=== PATIENT | female | born 1970 | race Caucasian/White ===

== ENCOUNTER 2022-05-19 10:21 | Outpatient (CLI) | payer SELFPAY ==
--- OUTSIDE RECORDS SUMMARY | 2022-05-19 10:27 | XMS_ITS | Encounter Summary ---
:1970 Author Organization [facility] Address [address] [place] [address] Care Team Providers Name Role Phone Deyvi Vick PA-C Primary Care Provider Reason for Visit Auth/Cert Specialty Diagnoses / Procedures Referred By Contact Refer red To Contact Surgery Diagnoses Right renal mass Right renal mass [N28.89] Periop Services Procedures Z[facility] LAPAROSCOPY, SURGICAL; NEPHRECTOMY, W/ PARTIAL URETERECTOMY ZZC NEPHRECTOMY ZZC LAP,DONOR KIDNEY REMOV,LIVING ZZC NEPHRECTOMY, W/PART. URETECTOMY Z LAP,PARTIAL NEPHRECTOMY HAND ASSISTED LAPAROSCOPIC RIGHT NEPHRECTOMY [address], [address] [place] [address] Phone: Referral ID Status Reason Start Date Expiration Date Visits Requ ested Visits Authorized [id number] 1 1 Encounter Details Date Type Department Care Team Description 01/16/2021 Anesthesia Event [facility] Jeremiah Quinones MD [facility] ANESTHESIOLOGIS [address], [address] [place] [address] [place] [address] [phone] Anesthesia Record Procedure Summary Procedure Name Responsible Anesthesia Start Anesthesia Stop Anesthesiologist Time Time HAND ASSISTED Noe Quinones MD 01/16/21 0733 01/16/21 0 924 LAPAROSCOPIC RIGHT NEPHRECTOMY (Right: Abdomen) Events Date Time Event Comment 01/16/2021 0641 0714 VINYL FLOORING INSTALLER Ready for Procedure 0733 An Start 0733 An Start Data 0733 Quick Note Patient has smal l abrasion on right eyebrow 0738 An Induction 0738 MD Present 0742 An Intubation 0742 MD Present 08 AN INCISION 0820 MD Present 0903 MD Present 09 MD Present 09 AN Extubation All extubation c riteria met prior to removal. 0912 an stop data 0924 An Stop Electronically s igned by SHERLYN Weller RNA on January 16, 2021 9:24 AM Name Total dexamethasone 4mg/mL 4 mg ePHEDrine 5 mg/mL 10 mg fentaNYL (SUBLIMAZE) injection 200 mcg glycopyrrolate 0.2mg/mL 0.6 mg lidocaine 2% 100 mg midazolam 1mg/mL 2 mg neostigmine 1mg/mL 4 mg ondansetron 2mg/mL 4 mg phenylephrine (LESLEY-SYNEPHRINE) injection 150 mcg propofol (DIPRIVAN) injection 10 mg/mL vial 150 mg propofol infusion (mcg/kg/min) 74.78 mg rocuronium 10mg/mL 60 mg ceFAZolin (ANCEF) intermittent infusion 2 g in 100 mL dextrose PRE-MIX 2 g HYDROmorphone 1 mg/ml 0.5 mg dexmedetomidine (PRECEDEX) 4 mcg/mL bolus 16 mcg lactated ringers infusion 1,300 mL LR PIV #2 100 mL Agents Name NO HELIOX O2 N2O Air Exp Sevoflurane Exp Isoflurane Exp Desflurane Exp N2O Ins Sevoflurane Ins Isoflurane Ins Desflurane O2 Auxiliary Blood No blood administrations on file. Lines, Drains, and Airways Type Details Placement Removal Incision/Surgical Site 01/16/21; 0909; Right; 01/16/21 0909 by Flank (LARGER Serene Whittington INCISION) SHELBY Shah Incision/Surgical Site 01/16/21; 0909; Right; 01/16/21 0909 by Abdomen; PORT SITES X PkErickSerene 3 SHELBY Shah Peripheral IV 01/16/21; 0639; 18 G; 01/16/21 0639 by 01/17/21 1815 by Left, Dorsal; Hand Saba Gutiérrez RN Akonure, Joan, RN Peripheral IV 01/16/21; 0646; 18 G; 01/16/21 0646 by 01/17/21 1815 by Right; Hand; Saba Gutiérrez, Juan Burrell, RN Chlorhexidine; Injectable Urethral Catheter 01/16/21; 0740; No; 01/16/21 0740 by 01/16/21 0900 by /GI/INTERMEDIATE SCHOOL TEACHER Pelvic Pk, Serene Pk, Serene Procedure; 16 fr SHELBY Shah RN ETT Placement Date: 01/16/21 0742 by 01/16/21 0910 b y 01/16/21; Placement Kailee Cunningham, Kailee Blackwell nd Time: 741 (created NUCLEAR AUXILIARY OPERATOR VINYL FLOORING INSTALLER D, NUCLEAR AUXILIARY OPERATOR VINYL FLOORING INSTALLER via procedure documentation); Mask Ventilation: 1; Ease of Intubation: Easy; Technique: Direct laryngoscopy; ETT Type: Single; Tube Size: 7 mm; DL Blade Size: Lares 2; Grade View: 2; Adjucts: Stylet; Placement Person: VINYL FLOORING INSTALLER; Attempts: 1; Depth: 21 cm documented in this encounter Social History Tobacco Use Types Packs/Day Years Used Date Smoking Tobacco: Former Other Smokeless Tobacco: Current Comments: Vaping Alcohol Use Standard Drinks/Week Comments Yes 0 (1 standard drink = 0.6 oz pure alcoho l) Occasional drink Sex Assigned at Date Recorded Not on file COVID-19 Exposure Response Date Recorded In the last month, have you been in contact with No / Unsure 01/16/2021 5:28 AM CDT someone who was confirmed or suspected to have Coronavirus / COVID-19? documented as of this encounter OR Notes Anesthesia Postprocedure Evaluation - Noe Quniones MD - 01/16/2021 2:37 PM CDT Patient: Pily Bojorquez Procedure(s): HAND ASSISTED LAPAROSCOPIC RIGHT NEPHRECTOMY Diagnosis:Right renal mass [N28.89] Diagnosis Additional Information: No value filed. Anesthesia Type: General Note: Disposition: Admission Postop Pain Control: Uneventful Sign Out: Well controlled pain PONV: No Neuro/Psych: Uneventful Sign Out: Acceptable/Baseline neuro status Airway/Respiratory: Uneventful Sign Out: Acceptable/Baseline resp. status CV/Hemodynamics: Uneventful Sign Out: Acceptable CV status; No obvious hypovolemia; No obvious fluid overload Other NRE: NONE DID A NON-ROUTINE EVENT OCCUR? No Event details/Postop Comments: On arrival to PACU patient anxious with shallow breathing, sats 100%, normal HR and blood pressure. Breath sounds equal. CXR obtained to rule out pneumothorax. Patient given 1 mg versed for anxiety. Last vitals: Vitals: 01/16/21 1058 01/16/21 1100 01/16/21 1300 BP: 128/69 Pulse: 54 Resp: 16 16 Temp: 36.3 ??C (97.4 ??F) SpO2: 91% 99% Last vitals prior to Anesthesia Care Transfer: VINYL FLOORING INSTALLER VITALS 01/16/2021 0842 - 01/16/2021 0942 01/16/2021 Resp Rate (observed): 16 EKG: Sinus rhythm Electronically Signed By: Noe Quinones MD January 16, 2021 2:38 PM Anesthesia Procedure Notes - Kailee Cunningham APRN CRNA - 01/16/2021 8:08 AM CDTAssociated Order(s): Airway Airway Patient location during procedure: OR Procedure Start/Stop Times: 01/16/2021 7:42 AM Staff - Anesthesiologist: Noe Quinones MD VINYL FLOORING INSTALLER: Kailee Cunningham APRN VINYL FLOORING INSTALLER Performed By: RAJI Consent for Airway Urgency: elective Indications and Patient Condition Indications for airway management: ayla-procedural Mask difficulty assessment: 1 - vent by mask Final Airway Details Final airway type: endotracheal airway Successful airway: ETT - single Endotracheal Airway Details ETT size (mm): 7.0 Cuffed: yes Successful intubation technique: direct laryngoscopy DL Blade Type: Lares 2 Grade View of Cords: 2 Adjucts: stylet Position: Right Measured from: gums/teeth Secured at (cm): 21 Bite block used: None Post intubation assessment Placement verified by: capnometry, equal breath sounds and chest rise Number of attempts at approach: 1 Number of other approaches attempted: 0 Secured with: silk tape Ease of procedure: easy Dentition: Intact and Unchanged Medication(s) Administered Medication Administration Time: 01/16/2021 7:42 AM Anesthesia Preprocedure Evaluation - Noe Quinones MD - 01/15/2021 8:34 PM CDT Anesthesia Pre-Procedure Evaluation Patient: Pily Bojorquez : 1970 Preoperative Diagnosis: Right renal mass [N28.89] Procedure : Procedure(s): HAND ASSISTED LAPAROSCOPIC RIGHT NEPHRECTOMY Past Medical History: Diagnosis Date ??? Colitis ??? Hypertension ??? Major depressive disorder Past Surgical History: Procedure Laterality Date ??? C/SECTION, CLASSICAL ??? COLONOSCOPY ??? Failed Bunionectomy ??? TUBAL LIGATION Allergies Allergen Reactions ??? Sulfa Drugs Hives Social History Tobacco Use ??? Smoking status: Current Every Day Smoker Types: Other ??? Smokeless tobacco: Never Used ??? Tobacco comment: Vaping Substance Use Topics ??? Alcohol use: Yes Comment: Occasional drink Wt Readings from Last 1 Encounters: No data found for Wt EKG - SR, nl axis HGB 14. K 4.7 Anesthesia Evaluation Pt has had prior anesthetic. No history of anesthetic complications ROS/MED HX ENT/Pulmonary: (+) tobacco use (Vapes), Past use, (-) sleep apnea and recent URI Neurologic: (+) no peripheral neuropathy (-) no seizures and migraines Cardiovascular: (+) hypertension----- (-) CHF and orthopnea/PND METS/Exercise Tolerance: Hematologic: - neg hematologic ROS Musculoskeletal: - neg musculoskeletal ROS GI/Hepatic: Comment: colitis (-) GERD Renal/Genitourinary: Comment: Right renal mass - incidental finding on MRI done for left sided back pain - neg Renal ROS Endo: - neg endo ROS (-) Type II DM and thyroid disease Psychiatric/Substance Use: (+) psychiatric history depression Infectious Disease: - neg infectious disease ROS Malignancy: - neg malignancy ROS Other: Physical Exam Airway airway exam normal Mallampati: I TM distance: > 3 FB Neck ROM: full Mouth opening: > 3 cm Respiratory Devices and Support Dental no notable dental history Cardiovascular Rhythm and rate: regular and normal Pulmonary pulmonary exam normal breath sounds clear to auscultation OUTSIDE LABS: CBC: No results found for: WBC, HGB, HCT, PLT BMP: No results found for: NA, POTASSIUM, CHLORIDE, CO2, BUN, CR, GLC COAGS: No results found for: PTT, INR, FIBR POC: No results found for: BGM, HCG, HCGS HEPATIC: No results found for: ALBUMIN, PROTTOTAL, ALT, AST, GGT, ALKPHOS, BILITOTAL, BILIDIRECT, RICH OTHER: No results found for: PH, LACT, A1C, SAIDA, PHOS, MAG, LIPASE, AMYLASE, TSH, T4, T3, CRP, SED Anesthesia Plan ASA Status: 2 NPO Status: NPO Appropriate Anesthesia Type: General. - Airway: ETT Induction: Propofol. Maintenance: Balanced. Techniques and Equipment: - Lines/Monitors: 2nd IV Consents Anesthesia Plan(s) and associated risks, benefits, and realistic alternatives discussed. Questions answered and patient/passenger service representative(s) expressed understanding. - Discussed with: Patient Postoperative Care Pain management: IV analgesics. PONV prophylaxis: Ondansetron (or other 5HT-3), Dexamethasone or Solumedrol, Background Propofol Infusion Comments: Noe Quinones MD documented in this encounter Miscellaneous Notes Anesthesia Care Transfer Note - Kailee Cunningham APRN VINYL FLOORING INSTALLER - 01/16/2021 9:25 AM CDT Patient: Pily Bojorquez Procedure(s): HAND ASSISTED LAPAROSCOPIC RIGHT NEPHRECTOMY Diagnosis: Right renal mass [N28.89] Diagnosis Additional Information: No value filed. Anesthesia Type: General Note: Oropharynx: oropharynx clear of all foreign objects Level of Consciousness: awake Oxygen Supplementation: face mask Level of Supplemental Oxygen (L/min / FiO2): 6 Independent Airway: airway patency satisfactory and stable Dentition: dentition unchanged Vital Signs Stable: post-procedure vital signs reviewed and stable Report to RN Given: handoff report given Patient transferred to: PACU Comments: Neuromuscular blockade reversed after TOF 1/4, spontaneous respirations, adequate tidal volumes, followed commands to voice, oropharynx suctioned with soft flexible catheter, extubated atraumatically, extubated with suction, airway patent after extubation. Oxygen via facemask at 6 liters per minute to PACU. Oxygen tubing connected to wall O2 in PACU, SpO2, NiBP, and EKG monitors and alarms on and functioning, report on patient's clinical status given to BINDER ROLLER, RN questions answered. Handoff Report: Identifed the Patient, Identified the Reponsible Provider, Reviewed the pertinent medical history, Discussed the surgical course, Reviewed Intra-OP anesthesia mangement and issues during anesthesia, Set expectations for post-procedure period and Allowed opportunity for questions and acknowledgement of understanding Vitals: (Last set prior to Anesthesia Care Transfer) VINYL FLOORING INSTALLER VITALS 01/16/2021 0842 - 01/16/2021 0925 01/16/2021 Resp Rate (set): 10 Electronically Signed By: Kailee Cunningham APRN CRNA January 16, 2021 9:25 AM documented in this encounter Plan of Treatment Not on filedocumented as of this encounter Procedures Procedure Name Priority Date/Time Associated Comments Diagnosis ANE AIRWAY ETT Routine 01/16/2021 8:08 AM Results for this PERFORMABLE CDT procedure are i n the results section. documented in this encounter Results ANE AIRWAY ETT PERFORMABLE (01/16/2021 8:08 AM CDT) Narrative Kailee Cunningham APRN CRNA - 2020 8:08 AM CDT Kailee Cunningham APRN CRNA ? 01/16/2021 ??8:09 AM Airway ? Patient location during procedure : OR ? Procedure Start/Stop Times: 2020 7:42 AM Staff - ? Anesthesiologist: ??Jeremiah Quinones MD ? VINYL FLOORING INSTALLER: Kailee Cunningham APRN CRNA ? Performed By: VINYL FLOORING INSTALLER Consent for Airway ? Urgency: elective Indications and Patient Condition ? Indications for airway management : ayla-procedural ? Mask difficulty assessment: 1 - v ent by mask Final Airway Details ? Final airway type: endotracheal a irway ? Successful airway: ETT - single Endotracheal Airway Details ? ETT size (mm): 7.0 ? Cuffed: yes ? Successful intubation technique: direct laryngoscopy ? DL Blade Type: Lares 2 ? Grade View of Cords: 2 ? Adjucts: stylet ? Position: Right ? Measured from: gums/teeth ? Secured at (cm): 21 ? Bite block used: None Post intubation assessment ? Placement verified by: capnometry , equal breath sounds and chest rise ? Number of attempts at approach: 1 ? Number of other approaches attemp ingrid: 0 ? Secured with: silk tape ? Ease of procedure: easy ? Dentition: Intact and Unchanged Medication(s) Administered Medication Administration Time: 7:42 AM Noe Quinones MD [place] ANESTHESIA documented in this encounter Visit Diagnoses Not on filedocumented in this encounter Administered Medications Inactive Administered Medications - up to 3 most recent administrations Medication Order MAR Action Action Date Dose Rate Site ceFAZolin (ANCEF) intermittent Given 01/16/2021 7:45 AM CDT 2 g infusion 2 g in 100 mL dextrose PRE-MIX Routine, 2 g, Intravenous, PRE-OP/PRE-PROCEDURE, Starting on Tue01/16/21 at 0602, For 1 dose, Give first dose within 1 hour PRIOR to incision. If patient weight is greater than or equal to 120 kg increase dose to 3 g., Indications: Perioperative Pharmacoprophylaxis dexamethasone (DECADRON) injection Given 01/16/2021 7:48 AM CDT 4 mg PRN, Administer over 1 Minutes, Starting on Tue01/16/21 at 0748, Anesthesia Intra-op dexmedetomidine (PRECEDEX) 4 mcg/mL bolu s Bolus 01/16/2021 9:18 AM CDT 8 mcg CONTINUOUS PRN, Starting on Tue01/16/21 at 0911, Anesthesia Intra-op New Bag 01/16/2021 9:11 AM CDT 8 mcg ePHEDrine injection Given 01/16/2021 8:12 AM CDT 5 mg PRN, Starting on Tue01/16/21 at 0757, Anesthesia Intra-op Given 01/16/2021 7:57 AM CDT 5 mg fentaNYL (PF) (SUBLIMAZE) injection Given 01/16/2021 9:17 AM CDT 50 mcg PRN, Administer over 3-5 Minutes, Starting on Tue01/16/21 at 0738, Anesthesia Intra-op Given 01/16/2021 9:11 AM CDT 50 mcg Given 01/16/2021 7:38 AM CDT 100 mcg glycopyrrolate (ROBINUL) injection Given 01/16/2021 8:37 AM CDT 0.6 mg PRN, Administer over 1-2 Minutes, Starting on Tue01/16/21 at 0837, Anesthesia Intra-op HYDROmorphone (DILAUDID) injection Given 01/16/2021 8:19 AM CDT 0.5 mg PRN, Starting on Tue01/16/21 at 0819, Anesthesia Intra-op lactated ringers infusion New Bag 01/16/2021 8:21 AM CDT at 25 mL/hr, Intravenous, CONTINUOUS, IF patient NOT on dialysis., Starting on Tue01/16/21 at 0630, Until Tue01/17/21 at 2006 New Bag 01/16/2021 6:44 AM CDT 25 mL/hr lactated ringers infusion New Bag 01/16/2021 7:50 AM CDT CONTINUOUS PRN, Anesthesia Intra-op, Starting on Tue01/16/21 at 0750, Until Tue01/16/21 at 0924 lidocaine 2% injection (MDV) Given 01/16/2021 7:38 AM CDT 100 mg PRN, Starting on Tue01/16/21 at 0738, Anesthesia Intra-op midazolam (VERSED) injection Given 01/16/2021 7:38 AM CDT 2 mg Administer over 2 Minutes, PRN, Starting on Tue01/16/21 at 0738, Anesthesia Intra-op neostigmine (PROSTIGMINE) injection Given 01/16/2021 8:37 AM CDT 4 mg Intravenous, PRN, Starting on Tue01/16/21 at 0837, Anesthesia Intra-op ondansetron (ZOFRAN) injection Given 01/16/2021 8:35 AM CDT 4 mg PRN, Administer over 2-5 Minutes, Starting on Tue01/16/21 at 0835, Anesthesia Intra-op phenylephrine (LESLEY-SYNEPHRINE) injection Bolus 01/16/2021 8:12 AM CDT 50 mcg CONTINUOUS PRN, Starting on Tue01/16/21 at 0756, Anesthesia Intra-op New Bag 01/16/2021 7:56 AM CDT 100 mcg propofol (DIPRIVAN) infusion New Bag 01/16/2021 7:57 AM 30 mcg/kg/min 11.8 mL/hr Intravenous, CONTINUOUS PRN, CDT Starting on Tue01/16/21 at 0757, Anesthesia Intra-op propofol (DIPRIVAN) injection 10 mg/mL v ial Given 01/16/2021 7:38 AM CDT 150 mg PRN, Starting on Tue01/16/21 at 0738, Anesthesia Intra-op rocuronium injection Given 01/16/2021 8:05 AM CDT 10 mg PRN, Starting on Tue01/16/21 at 0738, Anesthesia Intra-op Given 01/16/2021 7:59 AM CDT 10 mg Given 01/16/2021 7:38 AM CDT 40 mg documented in this encounter Care Teams Peoplesoft Programmer Relationship Specialty Start Date End Date Deyvi Vick PA-C PCP - General 01/09/[address] [facility] [place] [address] documented as of this encounter
--- OUTSIDE RECORDS SUMMARY | 2022-05-19 10:27 | XMS_ITS | Clinical Summary ---
:1970 Author Organization [facility] Address [address] [place] [address] Care Team Providers Name Role Phone Deyvi Vick PA-C Primary Care Provider Allergies Active Allergy Reactions Severity Noted Date Comments Sulfa Drugs Hives Medium 01/15/2021 Medications Medication Sig Dispensed Refills Start Date End Date Status amLODIPine (NORVASC) Take 5 mg by mouth 0 Active 5 MG tablet every morning naproxen sodium 220 Take 220 mg by 0 Active MG capsule mouth as needed aluminum chloride Apply topically 0 Active (DRYSOL) 20 % nightly as needed external solution lisinopril (ZESTRIL) Take 20 mg by mouth 0 Active 20 MG tablet every morning cetirizine (ZYRTEC) Take 10 mg by mouth 0 Active 10 MG tablet every morning ibuprofen Take 200 mg by 0 Activ e (ADVIL/MOTRIN) 200 MG mouth every 4 hours tablet as needed for mild pain HYDROmorphone Take 1 tablet (2 15 tablet 0 01/17/2021 Active (DILAUDID) 2 MG mg) by mouth every tabletIndications: 6 hours as needed Renal mass for moderate to severe pain senna-docusate Take 1-2 tablets by 60 tablet 0 01/17/2021 Active (SENOKOT-S/PERICOLACE mouth 2 times daily ) 8.6-50 MG as needed for tabletIndications: constipation Renal mass Active Problems Problem Noted Date Renal mass 01/16/2021 Social History Tobacco Use Types Packs/Day Years Used Date Smoking Tobacco: Former Other Smokeless Tobacco: Current Comments: Vaping Alcohol Use Standard Drinks/Week Comments Yes 0 (1 standard drink = 0.6 oz pure alcoho l) Occasional drink Sex Assigned at Date Recorded Not on file Last Filed Vital Signs Vital Sign Reading Time Taken Comments Blood Pressure 137/72 01/17/2021 5:19 PM CDT Pulse 64 01/17/2021 5:19 PM CDT Temperature 36.7 ??C (98.1 ??F) 01/17/2021 5:19 PM CDT Respiratory Rate 17 01/17/2021 5:19 PM CDT Oxygen Saturation 99% 01/17/2021 5:19 PM CDT Inhaled Oxygen Concentration - - Weight 67.7 kg (149 lb 4.8 oz) 01/17/2021 12:24 AM CDT Height 160 cm (5' 3) 01/16/2021 6:38 AM CDT Body Mass Index 26.45 01/16/2021 6:38 AM CDT Plan of Treatment Health Maintenance Due Date Last Done Comments ADVANCE CARE PLANNING 1970 ANNUAL REVIEW OF HM ORDERS 1970 CT COLONOGRAPHY 1971 FIT-DNA (Cologuard) 1970 FIT 1970 FLEX SIG 1970 MAMMO SCREENING 1970 YEARLY PREVENTIVE VISIT 1970 COVID-19 Vaccine (#1) 06/02/1972 COLONOSCOPY 11/30/1981 COLORECTAL CANCER SCREENING 11/30/1981 HIV SCREENING 11/30/1986 HEPATITIS C SCREENING 11/30/1989 PAP 11/30/1992 HEPATITIS B IMMUNIZATION (3 11/13/2008 10/30/2008, 10/17/19 09 of 4 - Hep B Twinrix 4-dose series) LIPID 11/30/2016 PHQ-2 (once per calendar 07/25/2021 year) ZOSTER IMMUNIZATION (1 of 11/30/2021 2) INFLUENZA VACCINE (#1) 2022 05/25/2017, 05/25/2017, 04/16/2016, Additional history exists DTAP/TDAP/TD IMMUNIZATION 01/13/2031 01/13/2021, 10/16/2008 , (3 - Td or Tdap) 10/16/2008 IPV IMMUNIZATION Aged Out No longer eligi ble based on patient 's age to complete this topic MENINGITIS IMMUNIZATION Aged Out No longe r eligible based on patient 's age to complete this topic Pneumococcal Vaccine: Aged Out No longer eligible Pediatrics (0 to 5 Years) based on patient's age and At-Risk Patients (6 to to co mplete this topic 64 Years) Insurance Payer Benefit Plan / Subscriber ID Effective Phone Address T ype Group Dates PREFERREDONE PREFERREDONE HMO [id number] 2020-[employer] [phone] [address] [address] [address] [place] [address] Advance Directives For more information, please contact: [phone] Latest Code Status on File Code Status Date Activated Date Inactivated Comments Full Code 01/16/2021 9:11 AM 01/17/2021 8:06 PM All basic an d advanced life-sustaining interventions are performed as remington ropriate Question Answer Comments Code status determined by: Unable to determine; FULL CODE un til documents or legal decision maker available Care Teams Bumper And Painter Relationship Specialty Start Date End Date Deyvi Vick PA-C PCP - General 01/09/[address] [place] [address]
--- OUTSIDE RECORDS SUMMARY | 2022-05-19 10:27 | XMS_ITS ---
:1970 Author Care Team Providers Name Role Phone [facility] Primary Care Provider [phone] Allergies Code Code System Name Reaction Severity Status Onset Sulfa (Sulfonamide Antibiotics) ? ? Active ? Medications Name Status Start Date Stop Date ? ? amlodipine 10 mg tablet Active ? Not avai lable TAKE ONE TABLET BY MOUTH ONE TIME DAILY amlodipine 5 mg tablet Completed ? TAKE ONE TABLET BY MOUTH AT BEDTIME ciprofloxacin 500 mg tablet Completed ? 06/25 TAKE ONE TABLET BY MOUTH TWICE DAILY cyclobenzaprine 10 mg tablet Active ? Not available TAKE 1 TABLET BY MOUTH 3 TIMES DAILY NEEDED Drysol 20 % topical solution Completed ? 03/2021 apply topically ONCE NIGHTLY FOR 2-3 NIGHTS, THEN 1-2 TIMES PER WEEK at NIGHT fluconazole 150 mg tablet Active ? Not av ailable take 1 tablet by mouth once hydromorphone 2 mg tablet Completed ? 2020 TAKE 1 TABLET BY MOUTH EVERY 6 HOURS NEEDED FOR MODERATE TO SEVERE PAIN ibuprofen Active ? Not available PRN lisinopril 20 mg tablet Active ? Not avai lable TAKE ONE TABLET BY MOUTH ONE TIME DAILY methylprednisolone 4 mg tablets in a dose pack Completed ? 12/31/2020 FOLLOW PACKAGE INSTRUCTIONS Stimulant Laxative Plus 8.6 mg-50 mg tablet Active ? Not available TAKE 1 TO 2 TABLETS BY MOUTH TWICE DAILY NEEDED FOR CONSTIPA TION tramadol 50 mg tablet Completed ? 12/31/2020 TAKE ONE OR TWO TABLETS BY MOUTH EVERY SIX HOURS NEEDED FOR severe PAIN Zyrtec Active ? Not available Problems Name Status Onset Date Source ? 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 Procedures Date Name Performed by ? 01/16/2021 Nephrectomy, Hand Assisted Information n ot available Laparoscopic (Surg) ? Tubal Ligation Information not avai lable ? Colonoscopy Information not avai lable ? Caesarean Section Information not avai lable 06/02/2021 CT, Chest + Abdomen + Pelvis, W/ [facility] Radiology Department Contrast [address] [place] [address] (Work Place) 12/15/2021 CT, Chest + Abdomen + Pelvis, W/ [facility] Radiology Department Contrast [address] [place] [address] (Work Place) 12/15/2021 CT, Abdomen + Pelvis, W/o Contrast [facility] Radiology Department [address] [place] [address] (Work Place) 04/28/2022 CT, Chest + Abdomen + Pelvis, W/ [facility] Radiology Department Contrast [address] [place] [address] (Work Place) Results Lab Results None recorded. Past Encounters 07/13/2021 Malignant Tumor of Kidney José Pretty MD: [id number] [place] [address], Ph. 02/19/2021 Malignant Tumor of Kidney José Pretty MD: [id number] [place] [address], Ph. 12/31/2020 Renal Mass José Pretty MD: [id number], [address], [place] [address], Ph. Social History Tobacco Smoking Status Former Smoker Vaccine List None recorded. Plan of Care Reminders Provider Appointments None recorded. ? ? Lab None recorded. ? ? Referral None recorded. ? ? Procedures None recorded. ? ? Surgeries None recorded. ? ? Imaging None recorded. ? ? Vitals 07/13/2021 03:20PM ESTABLISHED 10 Height Weight BMI 5 ft 3 in 143 lbs 25.3 kg/m2 02/19/2021 10:20AM POST OP 10 Height Weight BMI 5 ft 3 in 143 lbs 25.3 kg/m2 12/31/2020 03:30PM NEW PATIENT 10 Height Weight BMI 5 ft 3 in 140 lbs 24.8 kg/m2
--- OUTSIDE RECORDS SUMMARY | 2022-05-19 10:27 | XMS_ITS | Encounter Summary ---
:1970 Author Organization [place] Address [address] [place] [address]. [place] [address] Care Team Providers Name Role Phone Deyvi Vick PA-C Primary Care Provider Encounter Details Date Type Department Care Team Description 01/21/2021 Telephone [facility] - José Wood MD Surgical Specialties [facility] Service Line [address] [place] [address] [place], [place] [address] [phone] Social History Tobacco Use Types Packs/Day Years [...] / COVID-19? 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
--- OUTSIDE RECORDS SUMMARY | 2022-05-19 10:27 | XMS_ITS | Clinical Summary ---
:1970 Author Organization [facility] [place] [address] Care Team Providers Name Role Phone Clinic, No Pcp Or Primary Care Provider Unavailable Allergies Active Allergy Reactions Severity Noted Date Comments Sulfa (Sulfonamide Other - Describe In Comment 018 Hives Antibiotics) Field Medications Medication Sig Dispensed Refills Start Date End Date Status lisinopril (PRINIVIL; Take 1 tablet by 0 03/08/2018 Active ZESTRIL) 10 mg tablet mouth once daily. cetirizine (ZYRTEC) 10 Take 1 tablet by 0 03/08/2018 Active mg tablet mouth once daily. amLODIPine (NORVASC) TAKE 1 TABLET (10 0 03/19/2021 Active 10 mg tablet MG) BY MOUTH DAILY Active Problems Not on file Social History Tobacco Use Types Packs/Day Years Used Date Former Smoker Smokeless Tobacco: Never Used Sex Assigned at Date Recorded Not on file Obstetrics History Last Filed Vital Signs Vital Sign Reading Time Taken Comments Blood Pressure 122/84 03/08/2018 1:25 PM CDT Pulse 92 03/08/2018 1:25 PM CDT Temperature - - Respiratory Rate - - Oxygen Saturation - - Inhaled Oxygen Concentration - - Weight - - Height - - Body Mass Index - - Plan of Treatment Health Maintenance Due Date Last Done Comments COVID-19 vaccine series (#1) 06/02/1972 Tdap 11/30/1982 Depression screening for age 12+ 1983 BMI (ht and wt on same day) for age 18+ 11/30/1989 Hepatitis C screening for age 18-79 11/30/1989 Tetanus booster 1991 Colonoscopy through age 75 11/30/2016 Lipids for age 45-75 11/30/2016 Mammogram for age 45-75 11/30/2016 Pap test for age 21-65 04/18/2017 04/18/2014, 04/18/2014 Zoster (shingles) series for age 50+ (1 of 11/30/2021 2) Influenza for age 50-64 03/25/2022 Results Not on filefrom Last 3 Months Insurance Payer Benefit Plan / Subscriber ID Effective Dates Phone Addre ss Type Group PREFERRED ONE PREFERRED ONE [id number] 2020-Present [address] [address] [place] [address] [employer] [place] [employer] [id number] 2018-Present [address] [address] [place] [address] 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
--- OUTSIDE RECORDS SUMMARY | 2022-05-19 10:27 | XMS_ITS | Encounter Summary ---
:1970 Author Organization [place] Address [address] [place] [address] Care Team Providers Name Role Phone Unavailable Primary Care Provider Unavailable Encounter Details Date Type Department Care Team Description 01/05/2021 Orders Only [facility] José Pretty Encounter for Ana Lilia Lewis OR MD Arik screening for other [address] [facility] viral diseases [place] [id number] [place] [phone] [address] [id number] [place] [id number] (Wo rk) Social History Tobacco Use Types Packs/Day Years Used Date Smoking Tobacco: Never Assessed Sex Assigned at Date Recorded Not on file documented as of this encounter Miscellaneous Notes Addendum Note - Ree Talavera LPN - 01/05/2021 3:32 PM CDT Addended by: REE TALAVERA on: 01/08/2021 01:33 PM Modules accepted: Orders documented in this encounter Plan of Treatment Not on filedocumented as of this encounter Visit Diagnoses Diagnosis Encounter for screening for other viral diseases documented in this encounter
--- OUTSIDE RECORDS SUMMARY | 2022-05-19 10:27 | XMS_ITS | Encounter Summary ---
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
--- OUTSIDE RECORDS SUMMARY | 2022-05-19 10:27 | XMS_ITS | Encounter Summary ---
:1970 Author Organization [facility] Address [address] [place] [address] Care Team Providers Name Role Phone Deyvi Vick PA-C Primary Care Provider Reason for Visit Auth/Cert Specialty Diagnoses / Procedures Referred By Contact Refer red To Contact Surgery Diagnoses Right renal mass Right renal mass [N28.89] Periop Services Procedures [facility] LAPAROSCOPY, SURGICAL; NEPHRECTOMY, W/ PARTIAL URETERECTOMY [facility] NEPHRECTOMY [facility] LAP,DONOR KIDNEY REMOV,LIVING [facility] NEPHRECTOMY, W/PART. URETECTOMY [facility] LAP,PARTIAL NEPHRECTOMY HAND ASSISTED LAPAROSCOPIC RIGHT NEPHRECTOMY [address] [place] [address] Phone: Referral ID Status Reason Start Date Expiration Date Visits Requ ested Visits Authorized [id number] 1 1 Encounter Details Date Type Department Care Team Description 01/16/2021 Surgery [facility] Apolonia Noel H AND ILIA Sung PeriOP LAPAROSCOPIC RIGHT Services [facility] [address] [place] [address] [id number] [place] [id number] (Wo rk) Surgery Details Date/Time Status Location OR Service Patient Case Class Case Tr auma Class Type Case? 01/16/21 7:30 Posted OR OR 41 Urology Surgery AM Admit Panel 1 Procedure LRB Anes Op Region Wound Class Commen ts HAND ASSISTED LAPAROSCOPIC Right General Abdomen II-Clean Contaminated RIGHT NEPHRECTOMY Surgeon Surgeon Role Service Panel Apolonia Noel MD Primary Urology 1 Marilin Temple PA-C Assisting 1 documented in this encounter Social History Tobacco [...] / COVID-19? documented as of this encounter Last Filed Vital Signs Vital Sign Reading Time Taken Comments Blood Pressure 114/73 01/16/2021 9:30 AM CDT Pulse 48 01/16/2021 9:30 AM CDT Temperature 36.2 ??C (97.1 ??F) 01/16/2021 9:20 AM CDT Respiratory Rate 15 01/16/2021 9:30 AM CDT Oxygen Saturation 100% 01/16/2021 9:30 AM CDT Inhaled Oxygen Concentration - - Weight 65.6 kg (144 lb 11.2 oz) 01/16/2021 6:38 AM CDT Height 160 cm (5' 3) 01/16/2021 6:38 AM CDT Body Mass Index 26.45 01/16/2021 6:38 AM CDT documented in this encounter Discharge Instructions Discharge InstructionsHailey Medellin RN - 01/17/2021 5:21 PM CDT AttachmentsThe following attachments cannot be sent through Care Everywhere. Nephrectomy, Discharge Instructions for (Frisian)documented in this encounter Medications at Time of Discharge Medication Sig Dispensed Refills Start Date End Date aluminum chloride Apply topically nightly 0 (DRYSOL) 20 % external as needed solution amLODIPine (NORVASC) 5 Take 5 mg by mouth 0 MG tablet every morning cetirizine (ZYRTEC) 10 Take 10 mg by mouth 0 MG tablet every morning HYDROmorphone (DILAUDID) Take 1 tablet (2 mg) by 15 tablet 0 01/17/2021 2 MG tabletIndications: mouth every 6 hours as Renal mass needed for moderate to severe pain ibuprofen (ADVIL/MOTRIN) Take 200 mg by mouth 0 200 MG tablet every 4 hours as needed for mild pain lisinopril (ZESTRIL) 20 Take 20 mg by mouth 0 MG tablet every morning naproxen sodium 220 MG Take 220 mg by mouth as 0 capsule needed senna-docusate Take 1-2 tablets by 60 tablet 0 01/17/2021 (SENOKOT-S/PERICOLACE) mouth 2 times daily as 8.6-50 MG needed for constipation tabletIndications: Renal mass documented as of this encounter Progress Notes Anatoliy Hernandez MD - 01/17/2021 1:20 PM CDT Images from the original note were not included. [facility] Progress Note Pain ok. Kiki reg diet. Voiding. Has not ambulated except to bathroom. AVSS. UOP NR Hgb 11.2 Cr 1.24 NAD Resp non-labored Abd s/appropriate tender, nondistended Incisions c/d/i NoLE edema 50F POD#1 s/p right hand assisted laparoscopic nephrectomy. Doing well. - Really needs to ambulate. Hasn't been out of room in >24 hrs! - More ambulation - ADAT, SLIV - PO Pain control - More ambulation - Discharge home later today vs tomorrow - F/u Dr Noel in 3-4 weeks Anatoliy Hernandez MD 1:24 PM 01/17/21 Hailey Medellin RN - 01/16/2021 8:33 PM CDT Notification Notified Person: Notified Person Name: Yue Todd Notification Date/Time: 01/16/21 8:33pm Notification Interaction: web Purpose of Notification: Patient complained of itching after oxycodone administration. she has a history of itching with oxy per patient. Please can she have Benadryl. Please, can oxy be swapped? Orders Received: Comments: Dina Maldonado RN - 01/16/2021 9:30 AM CDT Patient complaining of dificulty breathing. Dr. Quinones MDA at bedside. Chest x- ray obtained and painmeds and anxiety meds given. Chest xray good lung sounds clear and equal bilaterally. 1 of versed given per Dr. Quinones and abdominal binder placed. Recovered and stated easier to breath. 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 No Time spent in this activity: 20 minutes The information provided in this note is only as accurate as the sources available at the time of update(s) Prior to Admission medications Medication Sig Last Dose Taking? Auth Provider aluminum chloride (DRYSOL) 20 % external solution Apply topically nightly as needed at PRN Yes Reported, Patient amLODIPine (NORVASC) 5 MG tablet Take 5 mg by mouth every morning at AM Yes Reported, Patient cetirizine (ZYRTEC) 10 MG tablet Take 10 mg by mouth every morning at AM Yes Reported, Patient ibuprofen (ADVIL/MOTRIN) 200 MG tablet Take 200 mg by mouth every 4 hours as needed for mild pain atPRN Yes Reported, Patient lisinopril (ZESTRIL) 20 MG tablet Take 20 mg by mouth every morning at AM Yes Reported, Patient naproxen sodium 220 MG capsule Take 220 mg by mouth as needed at PRN Yes Reported, Patient Dinh Burks, [facility] Medication [facility] documented in this encounter H&P Notes Noe Quinones MD - 01/16/2021 6:41 AM CDT I have reviewed the surgical (or preoperative) H&P that is linked to this encounter, and examined the patient. 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 Wide and high renal vein but patent. ANESTHESIA General STAFF Wharf Helper: Serene Whittington RN Scrub Person: Gabriel Powers COMPLICATIONS None SPECIMEN Kidney to path PROSTHESIS/ GRAFTS/ DEVICES None EBL 10cc TECHNIQUE Patient was taken to the operating room and induced under general anesthesia. An oral gastric tube and sharma were placed to decompress the abdominal stomach and bladder. The radiology images were viewed and the patient positioned in a semi oblique position. A surgical time out was taken to verify laterality and that the images had been revived. A 7cm transverse incision was made over McBurney's point. Leonardo landmarks had to be used to locate this area which was difficult to find to massive obesity. Dissection was carried down to the external oblique fascia, which was entered. The peritoneum was grasped and sharply entered. A safe location was fount along the midline and a 10mm trocar placed under direction vision. Laparoscopic steven were used to take down many of the adhesions. A second 10mm trocar was placed under direct vision along themidline. Attention could finally be paid to the kidney dissection. The colon was reflected medially. The duodenum was then identified and reflected medially. The ureter was dissected up to the kidney. The gonadal vein was left in tack and was seen entering the vena cava. The hilum was dissected free of its attachments. An endovascular stapler was used to divide the pedicle. Another load was used to divide the adrenal gland from the kidney. Due to the high location of the vein, part of the adrenal needed to be taken but the majority was spared. The ureter was divided with harmonic scalpel. There adrenal gland was spared. The specimen was taken out en bloc. Hemostasis was checked and was excellent. The incisions were all closed with O Vicryl. The largest incision was closed in three layers. The fascia was quite thin and attenuated as was the skin. The sponge and needles counts were correct and verified. PLAN Admit for IV hydration and management of post op pain. Likely 1-3 hospital stay. I'll call with pathology results when available and then see the patient in clinic in 3-4 weeks. Apolonia Noel MD documented in this encounter Miscellaneous Notes Plan of Care - Hailey Medellin RN - 01/17/2021 6:06 PM CDT Patient is alert and oriented,vital signs stable. Pain controlled with PO Dilaudid. Ambulated the halls x1 and up to the bathroom. Able to tolerate low fiber diet without n/v. Understood discharge instructions, transported off the unit via a wheelchair and a staff. No concerns at discharge all personal belongings sent with patient. Plan of Care - Tone Bravo RN - 01/17/2021 10:32 AM CDT Patient is A&Ox4. VSS ex bradycardic. C/o abdominal pain, gave PO dilaudid x2. 3 lap sites and right sided transverse incision noted, approximated with glue. Wearing abdominal binder. Tolerating low fiber diet. Up SBA using bathroom, voiding well. Possible discharge to home 01/17 pending pain control. Calls appropriately. Plan of Care - Hailey Medellin RN - 01/16/2021 10:50 PM CDT Patient is alert and oriented, vital signs stable POD #0. Patient wants a break from Capno to rest properly. 3 Port sites and incision to the R side on abdomen sutured with liquid bandage. Abdominal binder in place. Diet advanced to low fiber. IV dilaudid given x1 with relief. Patient developed itching from oxy. Benadryl given x1 and tramadol x1 with relief. Up to the bathroom severally with stand byassist. Possible discharge tomorrow if stable and pain under control. Plan of Care - Renita Love RN - 01/16/2021 2:44 PM CDT Transferred to from PACU around 11am, POD 0 of right nephrectomy d/t renal mass. VSS on RA, Capnoin place. 3 port sites and 1 incision on abdomen, liquid bandage, no drainage. Abd binder in place. Diet advanced to fulls, tolerating well. Has dilaudid IV and PO oxy for pain. Has not gotten OOB yet.No sharma, removed while in PACU, pt due to void. Pt also menstruating at this time, pad in place. Pleasant and cooperative. Needs IS explanation and demonstration. Possible discharge tomorrow if stableand pain under control. documented in this encounter Plan of Treatment Not on filedocumented as of this encounter Procedures Procedure Name Priority Date/Time Associated Comments Diagnosis HEMOGLOBIN Routine 01/17/2021 9:35 AM Results f or this CDT procedure are i n the results section. CREATININE Routine 01/17/2021 9:35 AM Results f or this CDT procedure are i n the results section. XR CHEST PORT 1 VIEW STAT 01/16/2021 9:32 AM R esults for this CDT procedure are i n the results section. SURGICAL PATHOLOGY Routine 01/16/2021 8:31 AM Res ults for this EXAM CDT procedure are i n the results section. NEPHRECTOMY, 01/16/2021 7:33 AM Right renal mass HAND-ASSISTED, CDT LAPAROSCOPIC POTASSIUM STAT 01/16/2021 6:45 AM Results f or this CDT procedure are i n the results section. ABO/RH TYPE AND STAT 01/16/2021 6:45 AM Result s for this SCREEN CDT procedure are i n the results section. SARS-COV-2 (COVID-19) STAT 01/16/2021 6:00 AM Results for this VIRUS RT-PCR CDT procedure are i n the results section. HCG QUALITATIVE URINE STAT 01/16/2021 6:00 AM Results for this CDT procedure are i n the results section. LAB RESULT - HIM SCAN 01/14/2021 12:00 AM CDT EKG CARDIAC - HIM 01/13/2021 12:00 SCAN AM CDT documented in this encounter Results (ABNORMAL) Hemoglobin (01/17/2021 9:35 AM CDT) athologist Signature Hemoglobin 11.2 (L) 11.7 - 15.7 01/17/2021 [place] g/dL 9:57 AM CDT [facility] Specimen Anatomical Collection Method Collection Time Receive d Time (Source) Location / / Volume Laterality Blood 01/17/2021 9:35 AM 9:36 CDT AM CDT Marilin Temple PA-C LAB - BLOOD ORDERABLES Performing Organization Address City/State/ZIP Code Phon e Number [facility] [address] [address] [facility] [address] [address], U [phone] (ABNORMAL) Creatinine (01/17/2021 9:35 AM CDT) athologist Signature Creatinine 1.24 (H) 0.52 - 01/17/2021 [place] 1.04 mg/dL 10:16 AM CDT [facility] GFR Estimate 51 (L) >60 01/17/2021 [place] mL/min/{1. 10:16 AM T [facility] 73_m2} HOSPITAL Comment: Non GFR Calc Starting 07/11/2018, serum creatinine ba sed estimated GFR (eGFR) will be calculated using the Chronic Kidney Dise banner Epidemiology Collaboration (CKD-EPI) equation. GFR Estimate If 59 (L) >60 mL/min/{1.73_m2} 01/17/2021 10 :16 AM [place] Black [facility] Comment: GFR Calc Starting 07/11/2018, serum creatinine ba sed estimated GFR (eGFR) will be calculated using the Chronic Kidney Dise banner Epidemiology Collaboration (CKD-EPI) equation. Specimen Anatomical Collection Method Collection Time Receive d Time (Source) Location / / Volume Laterality Blood 01/17/2021 9:35 AM 9:36 CDT AM CDT Marilin Temple PA-C LAB - BLOOD ORDERABLES Performing Organization Address City/State/ZIP Code Phon e Number [facility] [address] [address] [facility] [address] [place] [address], [facility] [phone] XR Chest Port 1 View (01/16/2021 9:32 AM CDT) Anatomical Region Laterality Modality Chest Digital Radiography Specimen (Source) Anatomical Location Collection Method / Collectio n Time Received Time / Laterality Volume Impressions 01/16/2021 9:46 AM CDT IMPRESSION: Clear lungs. No pleural effusion or pneumothorax. The cardiac and mediastinal silhouettes are normal. WELLINGTON DENSON MD Narrative 01/16/2021 9:46 AM CDT XR CHEST PORT 1 VIEW 01/16/2021 9:32 AM HISTORY: SOB COMPARISON: None. Procedure Note Wellington Denson MD - 01/16/2021 XR CHEST PORT 1 VIEW 01/16/2021 9:32 AM HISTORY: SOB COMPARISON: None. IMPRESSION: Clear lungs. No pleural effu mulugeta or pneumothorax. The cardiac and mediastinal silhouettes are normal. WELLINGTON DENSON MD Noe Quinones MD IMG DIAGNOSTIC IMAGING ORDER CAL Surgical pathology exam (01/16/2021 8:31 AM CDT) Component Value Ref Test Analysis Performed At [facility] Range Method Time Signature Copath Report Patient Name: PILY BOJORQUEZ MR#: [id number] Specimen #: [id number] Collected: 01/16/2021 Received: 01/16/2021 Reported: 01/19/2021 15:33 Ordering Phy(s): APOLONIA NOEL For improved result formatting, select 'View Enhanced Report Format' under Linked Documents section. SPECIMEN(S): Kidney, right FINAL DIAGNOSIS: <<<<< Kidney, right, nephrectomy - Renal cell carcinoma, clear cell type, nuclear grade 2 (se e description) >>>>> Report Name: Kidney - Nephrectomy, Partial or Radical ? Status: Submitted Checklist Inst: 1 ?Last Up dated By: Addi Tierney M.D., 01/19/2021 14:05:12 Part(s) Involved: A: Kidney, right Synoptic Report: SPECIMEN ??Procedure: ?- Radical nephrectomy ??Specimen Laterality: ?- Right TUMOR ??Histologic Type: ?- Clear cell renal cell carcinoma ??Histologic Grade: ?- G2: Nucleoli conspicuous and eosinophilic at 40 0x magnification, visible ?but not prominent at 100x magnification ??Tumor Size: 7.0 Centimeters (cm) ??Tumor Focality: ?- Unifocal ??Tumor Extension: ?- Tumor limited to kidney ??Sarcomatoid Features: ?- Not identified ??Rhabdoid Features: ?- Not identified ??Tumor Necrosis: ?- Not identified MARGINS ??Margins: ?- Uninvolved by invasive carcinoma LYMPH NODES ??Regional Lymph Nodes: ?- No lymph nodes submitted or found PATHOLOGIC STAGE CLASSIFICATION (PTNM, AJCC 8TH EDITION) ??Primary Tumor (pT): ?- pT1b ??Regional Lymph Nodes (pN): ?- pNX ADDITIONAL FINDINGS ??Pathologic Findings in Nonneoplastic Kidney: ?- None identified CAP [facility] August 2019 Annual Release Electronically signed out by: Addi Tierney M.D. CLINICAL HISTORY: <<<<< Renal mass >>>>> GROSS: A single specimen container with formalin is received labele d with the patient's name, date of , and medical record number. Information on the requisition slip, container, and associated labels is confirmed. Entire specimen right kidney a 280 g 14 x 8 x 5 cm kidney. ? ?The external surface displays a 7 x 6 x 3 cm exophytic mass that does not appear to involve the Gerota's fascia. ??This area is inked black. ??The vascular and ureter margins are shaved and submitted. ??The kidney is bivalved to reveal a subpelvic mass that is yellow to orange with diffuse petechial hemorrhages. ??The mass a buts but does not appear to grossly invade through the renal capsule into the Gerota's fascia. ??An adrenal gla nd is not grossly identified. ??The surrounding adipose is sectioned to reveal no lymph nodes. ??The remaini ng renal parenchyma is grossly unremarkable. Printing Services Coordinator sections are submitted. Summary of Sections: A1 - vascular and ureter resection margins A2 - hilar fat A3-A5 - mass to black inked Gerota's fascia A6-A7 - mass to renal pelvis A8-A9 - mass to adjacent unremarkable renal parenchyma A10 - unremarkable renal parenchyma (Dictated by: Salma campbell 01/16/2021 02:45 PM) MICROSCOPIC: <<<<< Sections of kidney show renal cell carcinoma, clear cell typ e, nuclear grade 2. Tumor appears confined to the kidney proper, and does not involve hilar fat or extend thro ugh the associated capsule. The resection margins are free of malignancy. Tumor necrosis is not observed. Neit her rhabdoid or sarcomatoid changes are identified. >>>>> The technical component of this testing was completed at the [facility], with the professional compo nent performed at the [facility], [address] [place] [address] ??[phone] ([phone]) CPT Codes: A: 07629-PE8 COLLECTION SITE: Client: [facility] Location: SHOR (S) Specimen (Source) Anatomical Collection Method Collection Time Re ceived Time Location / / Volume Laterality Tissue RIGHT KIDNEY 01/16/2021 8:31 AM STRUCTURE / CDT Unknown Comment: *[id number] Apolonia Noel MD LAB - BEAKER AP Performing Organization Address City/[facility]/ZIP [facility] Phon e Number COPATH ABO/Rh type and screen (01/16/2021 6:45 AM CDT) [facility] gist Method Time Signature ABO B 01/16/2021 [place] 7:43 AM CDT [facility] RH(D) Neg [facility] Antibody Neg 01/16/2021 [place] Screen 7:43 AM CDT [facility] Test Valid [facility] 01/16/2021 [place] Only At [facility] 7:12 AM CDT [facility] Specimen 01/19/2021 01/16/2021 [place] Expires 7:12 AM CDT [facility] Blood Bank This specimen was not labele d according to requirements for establishing a blood type for 01/16/2021 [place] Comment transfusion purposes. ??The patient can be transfused with type O red cells until a new 7:12 AM CDT [facility] specimen is obtained to conf irm the patient's blood type, at which time type-specific HOSPITAL blood can be transfused. Specimen Anatomical Collection Method Collection Time Receive d Time (Source) Location / / Volume Laterality Blood 01/16/2021 6:45 AM 7:02 CDT AM CDT Noe Quinones MD LAB - BLOOD BANK TEST ORDER Performing Organization Address City/[facility]/ZIP [facility] Phon e Number [facility] [address] [address] [facility] [address] [address], [place] [phone] Potassium (01/16/2021 6:45 AM CDT) P athologist Signature Potassium 4.2 3.4 - 5.3 01/16/2021 [place] mmol/L 7:37 AM CDT [facility] Comment: Specimen slightly hemolyzed, po tassium may be falsely elevated Specimen Anatomical Collection Method Collection Time Receive d Time (Source) Location / / Volume Laterality Blood 01/16/2021 6:45 AM 7:02 CDT AM CDT Authorizing Provider Result Mahogany Quinones MD LAB - BLOOD ORDERABLES Performing Organization Address City/State/ZIP Code Phon e Number [facility] [address] [place] [address] [facility] [address] [place] [address], [place] [phone] HCG qualitative urine (01/16/2021 6:00 AM CDT) athologist Signature HCG Qual Urine Negative NEG^Negati 01/16/2021 [place] ve 6:16 AM CDT [facility] Comment: This test is for screening purposes. ??R esults should be interpreted along with the clinical picture. ??Confirmation te sting is available if warranted by ordering [id number], HCG Quantitative Pregna ncy. Specimen Anatomical Collection Method Collection Time Receive d Time (Source) Location / / Volume Laterality Urine URINE SPECIMEN / 01/16/2021 6:00 AM 01/16 6:12 Unknown CDT AM CDT Noe Quinones MD LAB - URINE ORDERABLES Performing Organization Address City/State/ZIP Code Phon e Number [facility] [address] [place] [address] [facility] [address] [place] [address], [place] [phone] Asymptomatic SARS-CoV-2 COVID-19 Virus (Coronavirus) by PCR (01/16/2021 6:00 AM CDT) Patholo gist Method Time Signature SARS-CoV-2 Nasopharyngeal 01/16/2021 [place] Virus 6:11 AM CDT [facility] Source SARS-CoV-2 NEGATIVE 01/16/2021 [place] PCR Result 6:33 AM CDT [facility] Comment: SARS-CoV2 (COVID-19) RNA not de tected, presumed negative. SARS-CoV-2 PCR Comment (Note) 01/16/2021 6:33 A M CDT [facility] Comment: Testing was performed using the christopher SA RS-CoV-2 & Influenza A/B Assay on the christopher Krystle System. This test should be ordered for the dete ction of SARS-COV-2 in individuals who meet SARS-CoV-2 clinical and/or epidemi ological criteria. Test performance is unknown in asymptomatic patients. This test is for in vitro diagnostic use under the FDA EUA for laboratories certified under CLIA to perform moderate and/or high complexity testing. This test has not been FDA cleared or approve d. A negative test does not rule out the pr esence of PCR inhibitors in the specimen or target RNA in concentration below the limit of detection for the assay. The possibility of a false negati ve should be considered if the patient's recent exposure or clinical pr esentation suggests COVID-19. [facility] are certi fied under the Clinical Laboratory Improvement Amendments of 1988 (CLIA-88) as qualified to perform moderate and/or high complexity laboratory testin g. Specimen (Source) Anatomical Collection Method Collection Time Re ceived Time Location / / Volume Laterality Specimen from 01/16/2021 6:00 01/16/2021 nasopharyngeal AM CDT 6:11 AM CDT structure (specimen) Tera Perez DO LAB - MICRO GENERAL ORDERABL ES Performing Organization Address City/State/ZIP Code Phon e Number [facility] [address] [address] [facility] [address] [phone], [facility] [phone] LAB RESULT - HIM SCAN (01/14/2021 12:00 AM CDT) Specimen (Source) Anatomical Location Collection Method / Collectio n Time Received Time / Laterality Volume 01/14/2021 Narrative This result has an attachment that is no t available. Provider Outside NON-BEAKER LAB TESTING EKG CARDIAC - HIM SCAN (01/13/2021 12:00 AM CDT) Specimen (Source) Anatomical Location Collection Method / Collectio n Time Received Time / Laterality Volume 01/13/2021 Narrative This result has an attachment that is no t available. Provider Outside ECG ORDERABLES documented in this encounter Visit Diagnoses Diagnosis Renal mass - Primary Unspecified disorder of kidney and urete r Right renal mass Unspecified disorder of kidney and urete r documented in this encounter Admitting Diagnoses Diagnosis Renal mass Unspecified disorder of kidney and urete r documented in this encounter Administered Medications Inactive Administered Medications - up to 3 most recent administrations Medication Order MAR Action Action Date Dose Rate Site acetaminophen (TYLENOL) tablet 975 Given 01/17/2021 2:15 PM CDT 975 mg mg 975 mg, Oral, EVERY 6 HOURS RT, First dose on Tue01/16/21 at 1400, For 3 days, Administer for multimodal surgical pain management. Maximum acetaminophen dose from all sources = 75 mg/kg/day not to exceed 4 grams/day. Given 01/17/2021 7:36 AM CDT 975 mg Given 01/16/2021 8:19 PM CDT 975 mg amLODIPine (NORVASC) tablet 5 mg Given 01/17/2021 8:47 AM CDT 5 mg 5 mg, Oral, EVERY MORNING, First dose on Tue01/17/21 at 0900 bupivacaine (MARCAINE) Given 01/16/2021 8:48 AM 30 mLs Operative Site/Surgical 0.25 % injection CDT Site PRN, Starting on Tue01/16/21 at 0848, Intra-procedure cetirizine (zyrTEC) tablet 10 mg Given 01/17/2021 8:47 AM CDT 10 mg 10 mg, Oral, EVERY MORNING, First dose on Tue01/17/21 at 0900 diphenhydrAMINE (BENADRYL) capsule 25 mg Given 01/16/2021 9:59 PM CDT 25 mg 25 mg, Oral, EVERY 8 HOURS PRN, itching, Starting on Tue01/16/21 at 2114 famotidine (PEPCID) injection 20 mg 20 mg, Intravenous, Administer over 2 Minutes, 2 TIMES DAILY, First dose on Tue01/16/21 at 1100, For ordered IV doses 1- 20 mg, give IV Push diluted with 5-10ml NS over a minimum of 2 minutes. famotidine (PEPCID) tablet 20 mg Given 01/17/2021 8:47 AM CDT 20 mg 20 mg, Oral, 2 TIMES DAILY, First dose on Tue01/16/21 at 1100 Given 01/16/2021 8:19 PM CDT 20 mg Given 01/16/2021 11:29 AM CDT 20 mg HYDROmorphone (DILAUDID) tablet 2-4 mg Given 01/17/2021 4:53 PM CDT 4 mg 2-4 mg, Oral, EVERY 4 HOURS PRN, moderate to severe pain, Starting on Tue01/16/21 at 2116 Given 01/17/2021 11:57 AM CDT 4 mg Given 01/17/2021 7:36 AM CDT 4 mg HYDROmorphone (PF) (DILAUDID) injection Given 01/16/2021 5:43 PM CDT 0.5 mg 0.3-0.5 mg 0.3-0.5 mg, Intravenous, EVERY 2 HOURS PRN, moderate to severe pain, Starting on Tue01/16/21 at 1059, For ordered IV doses 0.1-4 mg give IV Push undiluted. Administer each 2mg over 2-5 minutes. Given 01/16/2021 11:27 AM CDT 0.3 mg lactated ringers infusion New Bag 01/16/2021 8:21 AM CDT at 25 mL/hr, Intravenous, CONTINUOUS, IF patient NOT on dialysis., Starting on Tue01/16/21 at 0630, Until 01/17/21 at 2006 New Bag 01/16/2021 6:44 AM CDT 25 mL/hr lidocaine 1 % 0.1-1 mL Given 01/16/2021 6:48 AM CDT 0.1 mLs 0.1-1 mL, Other, EVERY 1 HOUR PRN, mild pain with VAD insertion, Starting on Tue01/16/21 at 0602, MAX dose 1 mL subcutaneous OR intradermal along the side of the vein in divided doses as needed for VAD insertion. Do NOT give if patient has a history of allergy to any local anesthetic or any rachell product. Do NOT use both lidocaine intradermal/subcutaneous injection and the lidocaine cream on the same site. lisinopril (ZESTRIL) tablet 20 mg Given 01/17/2021 8:47 AM CDT 20 mg 20 mg, Oral, EVERY MORNING, First dose on 01/17/21 at 0900 naloxone (NARCAN) injection 0.2 mg 0.2 mg, Intravenous, EVERY 2 MIN PRN, op ioid reversal, Starting on Tue01/16/21 at 0911, Administer intravenous route when available and notify provider when administered. For unintended sedation or respiratory depression if all of the below criteria are met: ~ respiratory rate LES S than or EQUAL to 8. ~SaO2 less than 92% and or/end-tidal CO2 is greater than 50. ~ the patient is receiving an opioid, has unintended sedations assessed as RASS (-3), and is cur rently not on mechanical ventilation. RASS scale moderate (-3) is movement or eye opening to voice but no eye contact. Patient Monitoring Once the patient has demonstrated a response to the naloxone, continue to monitor respiratory rate, depth, oxygen saturation and end-tidal CO2 (if available) every 15 mi nutes x 2, then every 30 minutes x 2, then every 1 hour x 1 after each naloxone dose. Consider tr ansfer to ICU if patient respiratory parameters have not improved after 4 nalox one doses. For ordered IV doses 0.1-2mg give IVP. Give each 0.4mg over 15 seconds in emergency situations. For non-emergent situations further dilu te in 9mL of NS to facilitate titration of response. naloxone (NARCAN) injection 0.2 mg 0.2 mg, Intramuscular, EVERY 2 MIN PRN, opioid reversal, Starting on Tue01/16/21 at 0911, Administer intramuscular if an int ravenous route is not available and notify provider when administered. For unintend ed sedation or respiratory depression if all of the below criteria are met: ~ respiratory rate LESS than or EQUAL to 8. ~SaO2 less than 92% and or/end-tidal CO2 is greater th an 50. ~ the patient is receiving an opioid, has unintended sedations assessed as RASS (-3), and is currently not on mechanical ventilation. RASS scale moderate (-3) is movement or eye opening to voice but no eye contact. Patient Monitoring Once the patient has demonstrated a response to the naloxone, continue to m onitor respiratory rate, depth, oxygen saturation and end-tidal CO2 (if availab le) every 15 minutes x 2, then every 30 minutes x 2, then every 1 hour x 1 after each naloxone dose. Consider transfer to ICU if patient respiratory parameters have not improved after 4 naloxone doses. For ordered IV doses 0.1-2mg give IVP. Give each 0.4mg over 15 seconds in emergency situations. For non -emergent situations further dilute in 9mL of NS to facilitate titration of response. naloxone (NARCAN) injection 0.4 mg 0.4 mg, Intravenous, EVERY 2 MIN PRN, op ioid reversal, Starting on Tue01/16/21 at 0911, Administer intravenous route when available and notify provider when administered. For unintended sedation or respiratory depression if all of the below criteria are met: ~ respiratory rate LES S than or EQUAL to 8. ~ SaO2 less than 92% and or/end-tidal CO2 is greater than 50. ~ the patient is receiving an opioid, has unintended sedation assessed as RASS (-4 ) or (-5) and patient is currently not on mechanical ventilation. RASS scale (-4) is deep sedation with no response to voice but movement or eye opening to physical stimulation. R ASS scale (-5) is unarousable. Patient Monitoring Once the patient has demonstrated a response to the naloxone, continue to monitor respiratory rate, depth, oxygen saturation and end-tidal CO2 (if available) every 15 mi nutes x 2, then every 30 minutes x 2, then every 1 hour x 1 after each naloxone dose. Consider tr ansfer to ICU if patient respiratory parameters have not improved after 4 nalox one doses. For ordered IV doses 0.1-2mg give IVP. Give each 0.4mg over 15 seconds in emergency situations. For non-emergent situations further dilu te in 9mL of NS to facilitate titration of response. naloxone (NARCAN) injection 0.4 mg 0.4 mg, Intramuscular, EVERY 2 MIN PRN, opioid reversal, Starting on Tue01/16/21 at 0911, Administer intramuscular if an int ravenous route is not available and notify provider when administered. For unintend ed sedation or respiratory depression if all of the below criteria are met: ~ res piratory rate LESS than or EQUAL to 8. ~ SaO2 less than 92% and or/end-tidal CO2 is greater ines n 50. ~ the patient is receiving an opioid, has unintended sedation assessed as RASS (-4) or (-5) and patient is currently not on mechanical ventilation. RA SS scale (-4) is deep sedation with no response to voice but movement or eye opening to physical stimulation. RASS scale (-5) is unarousa ble. Patient Monitoring Once the patient has demonstrated a response to the nalox one, continue to monitor respiratory rate, depth, oxygen saturation and end-tidal CO2 (if availab le) every 15 minutes x 2, then every 30 minutes x 2, then every 1 hour x 1 after each naloxone dose. Consider transfer to ICU if patient respiratory parameters have not improved after 4 naloxone doses. For ordered IV doses 0.1-2mg give IVP. Give each 0.4mg over 15 seconds in emergency situations. For non -emergent situations further dilute in 9mL of NS to facilitate titration of response. ondansetron (ZOFRAN) injection 4 mg 4 mg, Intravenous, EVERY 6 HOURS PRN, nausea, vomiting , Administer over 2-5 Minutes, Starting on Tue01/16/21 at 1059, This is Step 1 of nausea and vomiting management. If nausea not resolved in 15 minutes, go t o Step 2 prochlorperazine (COMPAZINE). Irritant. For ordered IV do ses 0.1-4 mg, give IV Push undiluted over 2-5 minutes. ondansetron (ZOFRAN-ODT) ODT tab 4 mg 4 mg, Oral, EVERY 6 HOURS PRN, nausea, v omiting, Starting on Tue01/16/21 at 1059, This is Step 1 of nausea and vomiting management. If n ausea not resolved in 15 minutes, go to Step 2 prochlorperazine (COMPAZINE). Do not push through foil backing. Peel back foil and gently remove. Place on to ngue immediately. Administration with liquid unnecessary W ith dry hands, peel back foil backing and gently remove tablet. Do not push oral d isintegrating tablet through foil backing. Administer immediately on tongue and oral disintegrati ng tablet dissolves in seconds, then swallow with saliva. Liquid not required . prochlorperazine (COMPAZINE) injection 1 0 mg 10 mg, Intravenous, EVERY 6 HOURS PRN, nausea, vomitin g, Administer over 1-2 Minutes, Starting on Tue01/16/21 at 1059, This is Step 2 of nausea and vomiting management. If nausea not resolved in 15 -30 minutes, Notify provider. For ordered IV doses 0.1-10 mg, give IV push undiluted, each 5 mg over 1 minute. prochlorperazine (COMPAZINE) tablet 10 m g 10 mg, Oral, EVERY 6 HOURS PRN, nausea, vomiting, Starting on Tue01/16/21 at 1059, This is Step 2 of nausea and vomiting ma vandana. If nausea not resolved in 15-30 minutes, Notify provider. sodium chloride (PF) 0.9% PF flush 3 mL Given 01/17/2021 7:37 AM CDT 3 mLs 3 mL, Intracatheter, EVERY 8 HOURS, First dose on Tue01/16/21 at 1100, to lock peripheral IV dormant line Given 01/16/2021 11:38 PM CDT 3 mLs Given 01/16/2021 5:43 PM CDT 3 mLs sodium chloride 0.9% Given 01/16/2021 8:05 AM 1,000 mLs Operative (bottle) irrigation CDT Site/Surgical S ite PRN, Starting on Tue01/16/21 at 0805, Intra-procedure documented in this encounter Active and Recently Administered Medications Times are shown in CDT. Scheduled Medication Order 01/15/2021 01/16/2021 01/17/2021 acetaminophen (TYLENOL) tablet 1,000 mg (COMPLETED) 0644 (Given - Provider: Saba Gutiérrez, SHELBY) 1,000 mg, Oral, ONCE, Tue01/16/21 at 070 0, For 1 dose, Maximum acetaminophen dose from all sources = 75 mg/kg/day not to exceed 4 gram, Pre-procedure acetaminophen (TYLENOL) tablet 1,000 mg (COMPLETED) 0648 (Given - Provider: Saba Gutiérrez, SHELBY) 1,000 mg, Oral, ONCE, Tue01/16/21 at 070 0, For 1 dose, Maximum acetaminophen dose from all sources = 75 mg/kg/day not to exceed 4 gram, Pre-procedure acetaminophen (TYLENOL) tablet 975 mg 13 53 (Given - Provider: Renita Love, SHELBY)2019 (Given - Provider: Hailey Medellin, SHELBY) 0312 (Not Given - Provider: Tone Bravo, RN - Reason: Other - Comment: Cumulative dose alert)0736 (Given - Provider: Tone Bravo, RN)1415 (Given - Provider: Hailey Medellin, RN) 975 mg, Oral, EVERY 6 HOURS, First dose on Tue01/16/21 at 1400, For 3 days, Administer for multimodal surgical pain management. Maximum acetaminophen dose from all sources = 75 mg/kg/day not to exceed 4 grams/day. 1999 (Canceled Entry - Provider: Orders Generic Provider - Comment: Automatically canceled at discontinue of medication order) amLODIPine (NORVASC) tablet 5 mg 0847 (Given - Provider: Tone Bravo, RN) 5 mg, Oral, EVERY MORNING, First dose on Tue01/17/21 at 0900 ceFAZolin (ANCEF) 1 g vial to attach to NS 100 ml bag for ADULT or 50 ml bag for PEDS (COMPLETED) 4066 (New Bag - Provider: Sergei Hughes, RN)2338 (New Bag - Provider: Tone Bravo, RN) 0737 (New Bag - Provider: Tone Bravo, RN) Routine, 1 g, Intravenous, EVERY 8 HOURS , First dose on Tue01/16/21 at 1600, For 3 doses, Indications: Perioperative Pharmacoprophylaxis ceFAZolin (ANCEF) intermittent infusion 2 g in 100 mL dextrose PRE-MIX (COMPLETED) 0745 (Given - Provider: Kailee dexter APRN INTELLIGENCE MANAGER) Routine, 2 g, Intravenous, PRE-OP/PRE-AK OCEDURE, Starting Tue01/16/21 at 0602, For 1 dose, Give first dose within 1 hour PRIOR to incision. If patient weight is greater than or equal to 120 kg increase dose to 3 g., Indications: Perioperative Pharmacoprophylaxis cetirizine (zyrTEC) tablet 10 mg 0847 (Given - Provider: Tone Bravo, SHELBY) 10 mg, Oral, EVERY MORNING, First dose on Tue01/17/21 at 0900 famotidine (PEPCID) injection 20 mg(Linked Group 1) 112 (See Alternative - Provider: Renita Love, RN)2018 (See Alternative - Provider: Hailey Medellin, SHELBY) 0847 (See Alternative - Provider: Tone Bravo, SHELBY) 20 mg, Intravenous, Administer over 2 Mi nutes, 2 TIMES DAILY, First dose on Tue01/16/21 at 1100, For ordered IV doses 1-20 mg, give IV Push diluted with 5-10ml NS over a minimum of 2 minutes. famotidine (PEPCID) tablet 20 mg(Linked Group 1) 112 (Given - Provider: Renita Love RN)2019 (Given - Provider: Hailey Medellin RN) 0847 (Given - Provider: Tone Bravo RN) 20 mg, Oral, 2 TIMES DAILY, First dose on Tue01/16/21 at 1100 lisinopril (ZESTRIL) tablet 20 mg 0847 (Given - Provider: Tone Bravo RN) 20 mg, Oral, EVERY MORNING, First dose on Tue01/17/21 at 0900 midazolam (VERSED) injection 1 mg (COMPLETED) 940 (Given - Provider: Dina Maldonado RN) 1 mg, Intravenous, Administer over 2 Min utes, ONCE, Tue01/16/21 at 1000, For 1 dose, This drug may cause significant respiratory depression. Monitor respiratory status and vital signs carefully for 1 hour after each dose., PACU sodium chloride (PF) 0.9% PF flush 3 mL 1128 (Given - Provider: Renita Love RN)1743 (Given - Provider: Hailey Medellin RN)1916 (Not Given - Provider: Hailey Medellin RN - Reason: Other - Comment: previously given)2338 (Given - Provider: Tone Bravo RN) 0737 (Given - Provider: Jhony Rasmussen)1754 (Not Given - Provider: Hailey Medellin RN - Reason: No IV Access) 3 mL, Intracatheter, EVERY 8 HOURS, Firs t dose on Tue01/16/21 at 1100, to lock peripheral IV dormant line Continuous Medication Order 01/15/2021 01/16/2021 01/17/2021 lactated ringers infusion 0644 (New Bag - Provider: Saba Gutiérrez RN)0821 (New Bag - Provider: Kailee Cunningham APRN INTELLIGENCE MANAGER)0838 (Anesthesia Volume Adjustment - Provider: Kailee Cunningham APRN CRNA) at 25 mL/hr, Intravenous, CONTINUOUS, IF patient NOT on dialysis., Starting Tue01/16/21 at 0630, Until Tue01/17/21 at 2005 09 (Anest hesia Volume Adjustment - Provider: Kailee Cunningham APRN CRNA) sodium chloride 0.9% infusion (CANCELED) 1128 (New Bag - Provider: Renita Ivan, RN)2343 (New Bag - Provider: Tone Bravo RN) at 75 mL/hr, Intravenous, CONTINUOUS, St arting 01/16/21 at 1100, Until 01/17/21 at 1320 PRN Medication Order 01/15/2021 01/16/2021 01/17/2021 benzocaine-menthol (CHLORASEPTIC) 6-10 MG lozenge 1 lozenge 1 lozenge, Buccal, EVERY 1 HOUR PRN, mod erate pain, sore throat without fever, Starting Tue01/16/21 at 1059 bupivacaine (MARCAINE) 0.25 % injection (CANCELED) 0848 (Given - Provider: Apolonia Noel MD - Comment: Injection) PRN, Starting Tue01/16/21 at 0848, Intra-procedure calcium carbonate (TUMS) chewable tablet 500 mg 500 mg, Oral, 4 TIMES DAILY PRN, heartburn, Starting Tue01/16/21 at 1059 diphenhydrAMINE (BENADRYL) capsule 25 mg 2159 (Given - Provider: Hailey Medellin RN) 25 mg, Oral, EVERY 8 HOURS PRN, itching, Starting Tue01/16/21 at 2114 HYDROmorphone (DILAUDID) tablet 2-4 mg 0311 (Given - Provider: Tone Bravo RN)0736 (Given - Provider: Tone Bravo RN)1157 (Given - Provider: Hailey Medellin RN)1653 (Given - Provider: Hailey Medellin RN) 2-4 mg, Oral, EVERY 4 HOURS PRN, moderat e to severe pain, Starting Tue01/16/21 at 2116 HYDROmorphone (PF) (DILAUDID) injection 0.3-0.5 mg (CANCELED ) 0931 (Given - Provider: Dina Maldonado RN) 0.3-0.5 mg, Intravenous, EVERY 5 MIN PRN , other, acute pain. ??May administer if Respiratory Rate is greater than 10, Starting Tue01/16/21 at 0911, Max cumulative dose = 2 mg If fentaNYL (SUBLIMAZE) is also ordered, use HYDROmorphone (DILAUDI D) if pain control insufficient with fentaNYL (SUBLIMAZE) or a longer acting agent is needed. For ordered IV doses 0.1-4 mg give IV Push undiluted. Administer each 2mg over 2-5 minutes., PACU HYDROmorphone (PF) (DILAUDID) injection 0.3-0.5 mg 1127 (Given - Provider: Renita Love, RN)1743 (Given - Provider: Hailey Medellin RN) 0.3-0.5 mg, Intravenous, EVERY 2 HOURS P RN, moderate to severe pain, Starting Tue01/16/21 at 1059, For ordered IV doses 0.1-4 mg give IV Push undiluted. Administer each 2mg over 2-5 minutes. lidocaine (LMX4) cream Topical, EVERY 1 HOUR PRN, pain, with VA D insertion, Starting Tue01/16/21 at 1059, Apply at least 30 minutes prior to VAD insertion in divided doses as needed for size of site for insertion. MAX Dose: 2 .5 g (?? of 5 g tube) Do NOT give if pat ient has a history of allergy to any local anesthetic or any rachell product. Do NOT use both lidocaine intradermal/subcutaneous injection and the lidocaine cream on the same site. lidocaine 1 % 0.1-1 mL 0648 (Given - Provider: Emely Gutiérrez RN) 0.1-1 mL, Other, EVERY 1 HOUR PRN, mild pain with VAD insertion, Starting Tue01/16/21 at 0602, MAX dose 1 mL subcutaneous OR intradermal along the side of the vein in divided doses as needed for VAD ins ertion. Do NOT give if patient has a his tory of allergy to any local anesthetic or any rachell product. Do NOT use both lidocaine intradermal/subcutaneous injection and the lidocaine cream on the same site. lidocaine 1 % 0.1-1 mL 0.1-1 mL, Other, EVERY 1 HOUR PRN, mild pain with VAD insertion, Starting Tue01/16/21 at 1059, MAX dose 1 mL subcutaneous OR intradermal along the side of the vein in divided doses as needed for VAD ins ertion. Do NOT give if patient has a his tory of allergy to any local anesthetic or any rachell product. Do NOT use both lidocaine intradermal/subcutaneous injection and the lidocaine cream on the same site. naloxone (NARCAN) injection 0.2 mg 0.2 mg, Intravenous, EVERY 2 MIN PRN, op ioid reversal, Starting Tue01/16/21 at 0911, Administer intravenous route when available and notify provider when administered. For unintended sedation or respira tory depression if all of the below crit eria are met: ~ respiratory rate LESS than or EQUAL to 8. ~SaO2 less than 92% and or/end-tidal CO2 is greater than 50. ~ the patient is receiving an opioid, has u nintended sedations assessed as RASS (-3 ), and is currently not on mechanical ventilation. RASS scale moderate (-3) is movement or eye opening to voice but no eye contact. Patient Monitoring Once the pa tient has demonstrated a response to the naloxone, continue to monitor respiratory rate, depth, oxygen saturation and end-tidal CO2 (if available) every 15 minutes x 2, then every 30 minutes x 2, then e very 1 hour x 1 after each naloxone dose . Consider transfer to ICU if patient respiratory parameters have not improved after 4 naloxone doses. For ordered IV doses 0.1-2mg give IVP. Give each 0.4mg over 15 seconds in emergency situations. For non-emergent situations further dilute in 9mL of NS to facilitate titration of response. naloxone (NARCAN) injection 0.2 mg 0.2 mg, Intramuscular, EVERY 2 MIN PRN, opioid reversal, Starting Tue01/16/21 at 0911, Administer intramuscular if an intravenous route is not available and notify provider when administered. For uninte nded sedation or respiratory depression if all of the below criteria are met: ~ respiratory rate LESS than or EQUAL to 8. ~SaO2 less than 92% and or/end-tidal CO2 is greater than 50. ~ the patient is re ceiving an opioid, has unintended sedati ons assessed as RASS (-3), and is currently not on mechanical ventilation. RASS scale moderate (-3) is movement or eye opening to voice but no eye contact. Patien t Monitoring Once the patient has demons trated a response to the naloxone, continue to monitor respiratory rate, depth, oxygen saturation and end-tidal CO2 (if available) every 15 minutes x 2, then ever y 30 minutes x 2, then every 1 hour x 1 after each naloxone dose. Consider transfer to ICU if patient respiratory parameters have not improved after 4 naloxone doses. For ordered IV doses 0.1-2mg give I MEAL ATTENDANT. Give each 0.4mg over 15 seconds in e mergency situations. For non-emergent situations further dilute in 9mL of NS to facilitate titration of response. naloxone (NARCAN) injection 0.4 mg 0.4 mg, Intravenous, EVERY 2 MIN PRN, op ioid reversal, Starting Tue01/16/21 at 0911, Administer intravenous route when available and notify provider when administered. For unintended sedation or respira tory depression if all of the below crit eria are met: ~ respiratory rate LESS than or EQUAL to 8. ~ SaO2 less than 92% and or/end-tidal CO2 is greater than 50. ~ the patient is receiving an opioid, has unintended sedation assessed as RASS (-4 ) or (-5) and patient is currently not on mechanical ventilation. RASS scale (-4) is deep sedation with no response to voice but movement or eye opening to physic al stimulation. RASS scale (-5) is unaro usable. Patient Monitoring Once the patient has demonstrated a response to the naloxone, continue to monitor respiratory rate, depth, oxygen saturation and end-ti naomy CO2 (if available) every 15 minutes x 2, then every 30 minutes x 2, then every 1 hour x 1 after each naloxone dose. Consider transfer to ICU if patient respiratory parameters have not improved after 4 naloxone doses. For ordered IV doses 0.1-2mg give IVP. Give each 0.4mg over 15 seconds in emergency situations. For non-emergent situations further dilute in 9mL of NS to facilitate titration of response. naloxone (NARCAN) injection 0.4 mg 0.4 mg, Intramuscular, EVERY 2 MIN PRN, opioid reversal, Starting Tue01/16/21 at 0911, Administer intramuscular if an intravenous route is not available and notify provider when administered. For uninte nded sedation or respiratory depression if all of the below criteria are met: ~ respiratory rate LESS than or EQUAL to 8. ~ SaO2 less than 92% and or/end-tidal CO2 is greater than 50. ~ the patient is r eceiving an opioid, has unintended sedat ion assessed as RASS (-4) or (-5) and patient is currently not on mechanical ventilation. RASS scale (-4) is deep sedation with no response to voice but movement or eye opening to physical stimulation. RASS scale (-5) is unarousable. Patient Monitoring Once the patient has demonstrated a response to the naloxone, continue to monitor respiratory rate, depth, oxyg en saturation and end-tidal CO2 (if avai lable) every 15 minutes x 2, then every 30 minutes x 2, then every 1 hour x 1 after each naloxone dose. Consider transfer to ICU if patient respiratory parameters have not improved after 4 naloxone dose s. For ordered IV doses 0.1-2mg give IVP. Give each 0.4mg over 15 seconds in emergency situations. For non-emergent situations further dilute in 9mL of NS to facilitate titration of response. ondansetron (ZOFRAN) injection 4 mg(Linked Group 2) 4 mg, Intravenous, EVERY 6 HOURS PRN, na usea, vomiting, Administer over 2-5 Minutes, Starting Tue01/16/21 at 1059, This is Step 1 of nausea and vomiting management. If nausea not resolved in 15 minutes, go to Step 2 prochlorperazine (COMPAZIN E). Irritant. For ordered IV doses 0.1-4 mg, give IV Push undiluted over 2-5 minutes. ondansetron (ZOFRAN-ODT) ODT tab 4 mg(Linked Group 2) 4 mg, Oral, EVERY 6 HOURS PRN, nausea, v omiting, Starting Tue01/16/21 at 1059, This is Step 1 of nausea and vomiting management. If nausea not resolved in 15 minutes, go to Step 2 prochlorperazine (COMP AZINE). Do not push through foil backing . Peel back foil and gently remove. Place on tongue immediately. Administration with liquid unnecessary With dry hands, peel back foil backing and gently remove t ablet. Do not push oral disintegrating t ablet through foil backing. Administer immediately on tongue and oral disintegrating tablet dissolves in seconds, then swallow with saliva. Liquid not required. oxyCODONE (ROXICODONE) tablet 5-10 mg (CANCELED) 5 (Given - Provider: Karen Hughes RN) 5-10 mg, Oral, EVERY 4 HOURS PRN, modera te to severe pain, Starting Tue01/16/21 at 1059 prochlorperazine (COMPAZINE) injection 10 mg(Linked Group 3) 10 mg, Intravenous, EVERY 6 HOURS PRN, n ausea, vomiting, Administer over 1-2 Minutes, Starting Tue01/16/21 at 1059, This is Step 2 of nausea and vomiting management. If nausea not resolved in 15-30 raj isael, Notify provider. For ordered IV dos es 0.1-10 mg, give IV push undiluted, each 5 mg over 1 minute. prochlorperazine (COMPAZINE) tablet 10 mg(Linked Group 3) 10 mg, Oral, EVERY 6 HOURS PRN, nausea, vomiting, Starting Tue01/16/21 at 1059, This is Step 2 of nausea and vomiting management. If nausea not resolved in 15- 30 minutes, Notify provider. senna-docusate (SENOKOT-S/PERICOLACE) 8.6-50 MG per tablet 1-2 t ablet 1-2 tablet, Oral, 2 TIMES DAILY PRN, con stipation, Starting Tue01/16/21 at 1059, To prevent constipation. Hold for loose stools Hold for loose stools. sodium chloride (PF) 0.9% PF flush 3 mL 3 mL, Intracatheter, EVERY 1 MIN PRN, li ne flush, other, to ensure patency or to lock dormant line, Starting Tue01/16/21 at 1059 sodium chloride 0.9% (bottle) irrigation (CANCELED) 0805 (Given - Provider: Apolonia Noel MD) PRN, Starting Tue01/16/21 at 0805, Intra-procedure traMADol (ULTRAM) tablet 50 mg (CANCELED) 2158 (Given - Provider: Hailey Medellin RN) 50 mg, Oral, EVERY 6 HOURS PRN, moderate pain, Starting 01/16 at 2112 Linked Groups Order Group 1: famotidine (PEPCID) tablet 20 mgJump to med 20 mg, Oral, 2 TIMES DAILY, First dose o n Tue01/16/21 at 1100 Or famotidine (PEPCID) injection 20 mgJump to med 20 mg, Intravenous, Administer over 2 Mi nutes, 2 TIMES DAILY, First dose on Tue01/16/21 at 1100
For ordered IV doses 1-20 mg, give IV Push diluted with 5- 10ml NS over a minimum of 2 minutes.
Group 2: ondansetron (ZOFRAN-ODT) ODT tab 4 mgJump to med 4 mg, Oral, EVERY 6 HOURS PRN, nausea, v omiting, Starting 01/16/21 at 1059
This is Step 1 of nausea and vomiting management. If nausea not resolved in 15 minutes, go to St ep 2 prochlorperazine (COMPAZINE). Do no t push through foil backing. Peel back foil and gently remove. Place on tongue immediately. Administration with liquid unnecessary With dry hands, peel b ack foil backing and gently remove table t. Do not push oral disintegrating tablet through foil backing. Administer immediately on tongue and oral disintegrating tablet dissolves in seconds, then swallow with saliva. Liquid not required.
Or ondansetron (ZOFRAN) injection 4 mgJump to med 4 mg, Intravenous, EVERY 6 HOURS PRN, na usea, vomiting, Administer over 2-5 Minutes, Starting 01/16/21 at 1059
This is Step 1 of nausea and vomiting management. If nausea not resolved in 15 minutes, go to Step 2 prochlorperazine (COMPAZINE). Irritant. For ordered IV doses 0.1-4 mg, give IV Push undiluted over 2-5 minutes.
Group 3: prochlorperazine (COMPAZINE) injection 10 mgJump to med 10 mg, Intravenous, EVERY 6 HOURS PRN, n ausea, vomiting, Administer over 1-2 Minutes, Starting 01/16/21 at 1059
This is Step 2 of nausea and vomiting management. If nausea not reso lved in 15-30 minutes, Notify provider.& nbsp;For ordered IV doses 0.1-10 mg, give IV push undiluted, each 5 mg over 1 minute.
Or prochlorperazine (COMPAZINE) tablet 10 mgJump to med 10 mg, Oral, EVERY 6 HOURS PRN, nausea, vomiting, Starting 01/16/21 at 1059
This is Step 2 of nausea and vomiting management. If nausea not resolved in 15-30 minutes, Notify provider.
documented in this encounter Care Teams Frit Burner Relationship Specialty Start Date End Date Deyvi Vick PA-C PCP - General 01/09/21 [facility] [address], [place] [address] documented as of this encounter
--- OUTSIDE RECORDS SUMMARY | 2022-05-19 10:27 | XMS_ITS | Encounter Summary ---
:1970 Author Organization [place] Address [address] [place] [address] Care Team Providers Name Role Phone Deyvi Vick PA-C Primary Care Provider Reason for Visit Auth/Cert Specialty Diagnoses / Procedures Referred By Contact Refer red To Contact Surgery Diagnoses Right renal mass Right renal mass [N28.89] Sh Periop Services Procedures [facility] LAPAROSCOPY, SURGICAL; NEPHRECTOMY, W/ PARTIAL URETERECTOMY ZZC NEPHRECTOMY ZZC LAP,DONOR KIDNEY REMOV,LIVING ZZC NEPHRECTOMY, W/PART. URETECTOMY Z LAP,PARTIAL NEPHRECTOMY HAND ASSISTED LAPAROSCOPIC RIGHT NEPHRECTOMY [address] [place] [address] Phone: Referral ID Status Reason Start Date Expiration Date Visits Requ ested Visits Authorized [id number] 1 1 Encounter Details Date Type Department Care Team Description 01/16/2021 - [facility] Maria De Jesus Apolonia Renal mas s (Primary 01/17/2021 Encounter Ana Lilia Elise MD Dx) [facility] [address] [place] [address] [id number] [place] [id number] Social History Tobacco Use Types Packs/Day Years [...] through Care Everywhere. Nephrectomy, Discharge Instructions for (Korean)documented in this encounter Medications at Time of [...] from the original note were not included. [facility] Inpatient Progress Note Pain ok. Kiki [...] 01/16/2021 8:33 PM CDT Notification Notified Person: MD Notified Person Name: Yue Todd Notification Date/Time: [...] Recovered and stated easier to breath. Dina Maldonado, RN on 01/16/2021 at 10:42 AM Lm Burks - 01/15/2021 9:03 AM CDT [facility] medications updated by Medication Scribe prior to surgery via phone call with patient??(last doses completed by Nurse) Medication history sources: Patient and H&P In the past week, patient estimated taking medication this percent of the time: Greater than 90% Adherence assessment: N/A Not Observed Significant changes made to the medication list: Patient reports no longer taking the following meds (med scribe removed from [facility] med list): Tramadol, Cylclobenzaprine Additional medication history [...] needed at PRN Yes Reported, Patient Dinh Burks [facility] Medication Scribe [facility] documented in this encounter H&P Notes Noe [...] 8:54 AM CDT UROLOGY 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 Wide and high renal vein but patent. ANESTHESIA General STAFF Metalizer Field Operation: Serene Whittington RN Scrub Person: Gabriel Powers [...] Hemoglobin 11.2 (L) 11.7 - 15.7 01/17/2021 [place] g/dL 9:57 AM CDT [facility] Specimen Anatomical Collection Method Collection Time Receive d Time (Source) Location / / Volume Laterality Blood 01/17/2021 9:35 AM 9:36 CDT AM CDT Marilin Temple PA-C LAB - BLOOD ORDERABLES Performing Organization Address City/State/ZIP Code Phon e Number [facility] [address] [place] [phone] [facility] [address] [place] [address], [facility] [phone] (ABNORMAL) Creatinine (01/17/2021 9:35 AM CDT) athologist Signature Creatinine 1.24 (H) 0.52 - 01/17/2021 [place] 1.04 mg/dL 10:16 AM T [facility] GFR Estimate 51 (L) >60 01/17/2021 [place] mL/min/{1. 10:16 AM CDT [facility] 73_m2} HOSPITAL Comment: Non GFR Calc Starting 07/11/2018, serum creatinine ba sed estimated GFR (eGFR) will be calculated using the Chronic Kidney Dise ase Epidemiology Collaboration (CKD-EPI) equation. GFR Estimate If 59 (L) >60 mL/min/{1.73_m2} 01/17/2021 10 :16 AM [facility] Comment: GFR Calc Starting 07/11/2018, serum creatinine ba sed estimated GFR (eGFR) will be calculated using the Chronic Kidney Dise ase Epidemiology Collaboration (CKD-EPI) equation. Specimen Anatomical Collection Method Collection Time Receive d Time (Source) Location / / Volume Laterality Blood 01/17/2021 9:35 AM 9:36 CDT AM CDT Marilin Temple PA-C LAB - BLOOD ORDERABLES Performing Organization Address City/State/ZIP Code Phon e Number [facility] [address] [place] [address] [facility] [address] [place] [address], [place] [phone] XR Chest Port 1 View (01/16/2021 9:32 [...] Component Value Ref Test Analysis Performed At [facility] Range Method Time Signature Copath Report Patient Name: PILY BOJORQUEZ MR#: [id number] Specimen #: [id number] Collected: 01/16/2021 Received: 01/16/2021 Reported: 01/19/2021 15:33 [...] in Nonneoplastic Kidney: ?- None identified [facility] August 2019 Annual Release Electronically signed out [...] remaini ng renal parenchyma is grossly unremarkable. Electrical Cad Designer sections are submitted. Summary of Sections: A1 [...] of this testing was completed at the [facility], with the professional compo nent performed at the [facility], [address] [place] [address] ??[phone] ([phone]) CPT Codes: A: 64952-AR0 COLLECTION SITE: Client: [facility] Location: SHOR (S) Specimen (Source) Anatomical Collection Method Collection Time Re ceived Time Location / / Volume Laterality Tissue RIGHT KIDNEY 01/16/2021 8:31 AM STRUCTURE / CDT Unknown Comment: *[id number] [place] Performing Organization Address City/State/ZIP Code Phon e Number [facility] ABO/Rh type and screen (01/16/2021 6:45 AM CDT) Patholo gist Method Time Signature ABO B 01/16/2021 [place] 7:43 AM CDT [facility] RH(D) Neg [facility] Antibody Neg 01/16/2021 [place] Screen 7:43 AM CDT [facility] Test Valid [place] 01/16/2021 [place] Only At [facility] 7:12 AM CDT [facility] HOSPITAL Specimen 01/19/2021 01/16/2021 [place] Expires 7:12 AM CDT [facility] Blood Bank This specimen was not labele d according to requirements for establishing a blood type for 01/16/2021 [place] Comment transfusion purposes. ??The patient can be transfused with type O red cells until a new 7:12 AM CDT [facility] specimen is obtained to conf irm the patient's blood type, at which time type-specific HOSPITAL blood can be transfused. Specimen Anatomical Collection Method Collection Time Receive d Time (Source) Location / / Volume Laterality Blood 01/16/2021 6:45 AM 7:02 CDT AM CDT Noe Quinones MD LAB - BLOOD BANK TEST ORDER Performing Organization Address City/State/ZIP Code Phon e Number [facility] [address] [place] [address] [phone] [facility] [address] [place] [address] [address], [facility] [phone] Potassium (01/16/2021 6:45 AM CDT) P athologist Signature Potassium 4.2 3.4 - 5.3 01/16/2021 [place] mmol/L 7:37 AM CDT [facility] Comment: Specimen slightly hemolyzed, po tassium may be falsely elevated Specimen Anatomical Collection Method Collection Time Receive d Time (Source) Location / / Volume Laterality Blood 01/16/2021 6:45 AM 7:02 CDT AM CDT Noe Quinones MD LAB - BLOOD ORDERABLES Performing Organization Address City/State/ZIP Code Phon e Number [facility] [address] [address] [address] [facility] [address] [place] [address], [place] [phone] HCG qualitative urine (01/16/2021 6:00 AM CDT) P athologist Signature HCG Qual Urine Negative NEG^Negati 01/16/2021 [place] ve 6:16 AM CDT [facility] Comment: This test is for screening purposes. ??R esults should be interpreted along with the clinical picture. ??Confirmation te sting is available if warranted by ordering [id number], HCG Quantitative Pregna ncy. Specimen Anatomical Collection Method Collection Time Receive d Time (Source) Location / / Volume Laterality Urine URINE SPECIMEN / 01/16/2021 6:00 AM 01/16 6:12 Unknown CDT AM CDT Noe Quinones MD LAB - URINE ORDERABLES Performing Organization Address City/State/ZIP Code Phon e Number [facility] [address] [address] [facility] [address] [place] [address] [address], [phone] Asymptomatic SARS-CoV-2 COVID-19 Virus (Coronavirus) by PCR (01/16/2021 6:00 AM CDT) [facility] gist Method Time Signature SARS-CoV-2 Nasopharyngeal 01/16/2021 [place] Virus 6:11 AM CDT [facility] Source SARS-CoV-2 NEGATIVE 01/16/2021 [place] PCR Result 6:33 AM CDT [facility] Comment: SARS-CoV2 (COVID-19) RNA not de tected, presumed negative. SARS-CoV-2 PCR Comment (Note) 01/16/2021 6:33 A M CDT [facility] Comment: Testing was performed using the christopher [...] exposure or clinical pr esentation suggests COVID-19. [facility] Laboratories are certi fied under the Clinical [...] Organization Address City/State/ZIP Code Phon e Number [place] [id number] [place] [phone] [facility] [address] [place] [address] [address], [facility] [phone] LAB RESULT - HIM SCAN (01/14/2021 12:00 [...] Unspecified disorder of kidney and urete r Renal mass Unspecified disorder of kidney and urete r documented in this encounter Admitting Diagnoses Diagnosis Renal mass Unspecified disorder of kidney and urete r documented in this encounter Administered Medications Inactive Administered Medications - up to 3 most recent administrations Medication Order MAR Action Action Date Dose Rate Site acetaminophen (TYLENOL) tablet Given 01/16/2021 6:44 AM CDT 1,00 0 mg 1,000 mg 1,000 mg, Oral, ONCE, On Tue01/16/21 at 0700, For 1 dose, Maximum acetaminophen dose from all sources = 75 mg/kg/day not to exceed 4 gram, Pre-procedure acetaminophen (TYLENOL) tablet 1,000 mg Given 01/16/2021 6:48 AM CDT 1,000 mg 1,000 mg, Oral, ONCE, On Tue01/16/21 at 0700, For 1 dose, Maximum acetaminophen dose from all sources = 75 mg/kg/day not to exceed 4 gram, Pre-procedure acetaminophen (TYLENOL) tablet 975 mg Given 01/17/2021 2:15 PM CDT 975 mg 975 mg, Oral, EVERY 6 HOURS [...] MORNING, First dose on 01/17/21 at 0900 ceFAZolin (ANCEF) 1 g vial to attach New Bag 01/17/2021 7:37 A M CDT 1 g 200 mL/hr to NS 100 ml bag for ADULT or 50 ml bag for PEDS Routine, 1 g, Intravenous, EVERY 8 HOURS, First dose on Tue01/16/21 at 1600, For 3 doses, Indications: Perioperative Pharmacoprophylaxis New Bag 01/16/2021 11:38 PM CDT 1 g New Bag 01/16/2021 4:56 PM CDT 1 g cetirizine (zyrTEC) tablet 10 mg Given 01/17/2021 8:47 AM CDT 10 mg 10 mg, Oral, EVERY MORNING, First dose on 01/17/21 at 0900 diphenhydrAMINE (BENADRYL) capsule 25 mg [...] mg HYDROmorphone (PF) (DILAUDID) injection Given 01/16/2021 9:31 AM CDT 0.5 mg 0.3-0.5 mg 0.3-0.5 mg, Intravenous, EVERY 5 MIN PRN, other, acute pain. ??May administer if Respiratory Rate is greater than 10, Starting on Tue01/16/21 at 0911, Max cumulative dose = 2 mg If fentaNYL (SUBLIMAZE) is also ordered, use HYDROmorphone (DILAUDID) if pain control insufficient with fentaNYL (SUBLIMAZE) or a longer acting agent is needed. For ordered IV doses 0.1-4 mg give IV Push undiluted. Administer each 2mg over 2-5 minutes., PACU HYDROmorphone (PF) (DILAUDID) injection Given 01/16/2021 5:43 [...] MORNING, First dose on 01/17/21 at 0900 midazolam (VERSED) injection 1 mg Given 01/16/2021 9:41 AM CDT 1 mg 1 mg, Intravenous, Administer over 2 Minutes, ONCE, On Tue01/16/21 at 1000, For 1 dose, This drug may cause significant respiratory depression. Monitor respiratory status and vital signs carefully for 1 hour after each dose., PACU naloxone (NARCAN) injection 0.2 mg 0.2 mg, [...] swallow with saliva. Liquid not required . oxyCODONE (ROXICODONE) tablet 5-10 mg Given 01/16/2021 4:55 PM CDT 5 mg 5-10 mg, Oral, EVERY 4 HOURS PRN, moderate to severe pain, Starting on Tue01/16/21 at 1059 prochlorperazine (COMPAZINE) injection 1 0 mg 10 [...] Step 2 of nausea and vomiting ma nagement. If nausea not resolved in 15-30 minutes, Notify provider. sodium chloride (PF) 0.9% PF flush 3 mL Given 01/17/2021 7:37 AM CDT 3 mLs 3 mL, Intracatheter, EVERY 8 HOURS, First dose on Tue01/16/21 at 1100, to lock peripheral IV dormant line Given 01/16/2021 11:38 PM CDT 3 mLs Given 01/16/2021 5:43 PM CDT 3 mLs sodium chloride 0.9% infusion New Bag 01/16/2021 11:43 PM CDT 75 mL/hr at 75 mL/hr, Intravenous, CONTINUOUS, Starting on Tue01/16/21 at 1100, Until 01/17/21 at 1320 New Bag 01/16/2021 11:28 AM CDT 75 mL/hr traMADol (ULTRAM) tablet 50 mg Given 01/16/2021 9:59 PM CDT 50 mg 50 mg, Oral, EVERY 6 HOURS PRN, moderate pain, Starting on Tue01/16/21 at 2112 documented in this encounter Active and Recently Administered Medications Times are shown in CDT. Scheduled Medication Order 01/15/2021 01/16/2021 01/17/2021 acetaminophen (TYLENOL) tablet 1,000 mg (COMPLETED) 0644 (Given - Provider: Saba Gutiérrez RN) 1,000 mg, Oral, ONCE, Tue01/16/21 at 070 0, For 1 dose, Maximum acetaminophen dose from all sources = 75 mg/kg/day not to exceed 4 gram, Pre-procedure acetaminophen (TYLENOL) tablet 1,000 mg (COMPLETED) 0648 (Given - Provider: Saba Gutiérrez RN) 1,000 mg, Oral, ONCE, Tue01/16/21 at 070 0, For 1 dose, Maximum acetaminophen dose from all sources = 75 mg/kg/day not to exceed 4 gram, Pre-procedure acetaminophen (TYLENOL) tablet 975 mg 13 53 (Given - Provider: Renita Love, SHELBY)2019 (Given - Provider: Hailey Medellin, RN) 0312 (Not Given - Provider: Tone Bravo, SHELBY - Reason: Other - Comment: Cumulative dose [...] 5 mg 0847 (Given - Provider: Tone Bravo RN) 5 mg, Oral, EVERY MORNING, First dose on Tue01/17/21 at 0900 ceFAZolin (ANCEF) 1 g vial to attach to NS 100 ml bag for ADULT or 50 ml bag for PEDS (COMPLETED) 1656 (New Bag - Provider: Sergei Hughes, RN)2338 (New Bag - Provider: Tone Bravo, RN) 0737 (New Bag - Provider: Tone Bravo, RN) Routine, 1 g, Intravenous, EVERY 8 HOURS , First dose on Tue01/16/21 at 1600, For 3 doses, Indications: Perioperative Pharmacoprophylaxis ceFAZolin (ANCEF) intermittent infusion 2 g in 100 mL dextrose PRE-MIX (COMPLETED) 0745 (Given - Provider: Kailee dexter APRN CRNA) Routine, 2 g, Intravenous, PRE-OP/PRE-SD OCEDURE, Starting Tue01/16/21 at 0602, For 1 dose, Give first dose within 1 hour PRIOR to incision. If patient weight is greater than or equal to 120 kg increase dose to 3 g., Indications: Perioperative Pharmacoprophylaxis cetirizine (zyrTEC) tablet 10 mg 0847 (Given - Provider: Tone Bravo RN) 10 mg, Oral, EVERY MORNING, First dose on Tue01/17/21 at 0900 famotidine (PEPCID) injection 20 mg(Linked Group 1) 1128 (See Alternative - Provider: Renita Love, SHELBY)2018 (See Alternative - Provider: Hailey Medellin, SHELBY) 0847 (See Alternative - Provider: Tone Bravo RN) 20 mg, Intravenous, Administer over 2 Mi nutes, 2 TIMES DAILY, First dose on Tue01/16/21 at 1100, For ordered IV doses 1-20 mg, give IV Push diluted with 5-10ml NS over a minimum of 2 minutes. famotidine (PEPCID) tablet 20 mg(Linked Group 1) 112 (Given - Provider: Renita Love RN)2018 (Given - Provider: Hailey Medellin RN) 0847 [...] (New Bag - Provider: Kailee Cunningham APRN MENTAL HEALTH WORKER)0838 (Anesthesia Volume Adjustment - Provider: Kailee Cunningham APRN CRNA) at 25 mL/hr, Intravenous, CONTINUOUS, IF patient NOT on dialysis., Starting Tue01/16/21 at 0630, Until Tue01/17/21 at 2005 09 (Anest hesia Volume Adjustment - Provider: Kailee Cunningham APRN CRNA) sodium chloride 0.9% infusion (CANCELED) 1128 (New Bag - Provider: Renita Love RN)2343 (New Bag - Provider: Tone Bravo [...] 2-4 mg 0311 (Given - Provider: Tone Bravo, SHELBY)0736 (Given - Provider: Tone Bravo RN)1157 (Given - Provider: Hailey Medellin RN)1653 (Given - Provider: Haiely Medellin RN) 2-4 mg, Oral, EVERY 4 [...] Renita Love, RN)1743 (Given - Provider: Hailey Medellin, RN) 0.3-0.5 mg, Intravenous, EVERY 2 HOURS [...] For ordered IV doses 0.1-2mg give I HUMAN RESOURCES RECRUITER. Give each 0.4mg over 15 seconds in [...] required. oxyCODONE (ROXICODONE) tablet 5-10 mg (CANCELED) 1655 (Given - Provider: Karen Hughes, SHELBY) 5-10 mg, Oral, EVERY 4 HOURS PRN, [...] PRN, nausea, v omiting, Starting Tue01/16/21 at 1059
This is Step 1 of [...] provider.
documented in this encounter Care Teams Sugar Chipper Machine Operator Relationship Specialty Start Date End Date Deyvi Vick PA-C PCP - General 01/09/21 [place] [address] [place] [address] documented as of this encounter
--- OUTSIDE RECORDS SUMMARY | 2022-05-19 10:27 | XMS_ITS | Encounter Summary ---
:1970 Author Organization [place] Address [address] [place] [address] Care Team Providers Name Role Phone Deyvi Vick PA-C Primary Care Provider Encounter Details Date Type Department Care Team Description 01/14/2021 External Order [facility] Outside, Provider Results Trans[facility] [address] [place] [phone] Social History Tobacco Use Types Packs/Day Years [...] encounter Procedures Procedure Name Priority Date/Time Associated Diagnosis Comme nts COVID-19 VIRUS Routine 01/14/2021 11:38 AM Result s for this (CORONAVIRUS) BY CDT procedure a re in PCR (EXTERNAL the results RESULT) section. documented in this encounter Results COVID-19 Virus (Coronavirus) by PCR (External Result) (01/14/2021 11:38 AM CDT) P athologist Signature COVID-19 Virus Negative Negative [facility] by PCR (External Result) Specimen (Source) Anatomical Collection Method Collection Time Re ceived Time Location / / Volume Laterality 01/14/2021 11:38 AM CDT Narrative SATHYAEZE PFT - 01/15/2021 10:15 AM CDT Verified by Tadeo Lombardi on 2020. Patient Reported LABORATORY Performing Organization Address City/State/ZIP Code Lizbeth GELLER PFT [facility] [place], [place] [phone] [address] [facility] [phone] documented in this encounter Visit Diagnoses Not on filedocumented in this encounter Care Teams Booking Agent Relationship Specialty Start Date End Date Deyvi Vick PA-C PCP - General 01/09/21 [place] [address] [place] [address] documented as of this encounter
[2022-05-19 14:15] LABS: Albumin* 5.2 g/dL (3.3-5.0); Chloride* 104 mmol/L (96-114); Potassium* 4.6 mmol/L (3.6-5.1); Sodium* 138 mmol/L (135-149)
[2022-05-19 14:18] LABS: Alanine Aminotransferase* 22 U/L (4-35); Alkaline Phosphatase* 87 U/L (40-150); Aspartate Amino Transferase* 26 U/L (12-35); Bilirubin Total* 0.5 mg/dL (0.1-1.5); Blood Urea Nitrogen* 16 mg/dL (7-30); Calcium* 10.3 mg/dL (8.4-10.6); Carbon Dioxide* 27 mmol/L (20-32); Creatinine* 1.1 mg/dL (0.5-1.5); Estimated Glomerular Filt Rate 61 ml/min; Total Protein* 8.2 g/dL (6.0-8.3)
[2022-05-19 14:28] LABS: Vitamin D 25 Hydroxy* 43 ng/mL (30-80)
[2022-05-19 14:46] LABS: Ferritin* 35.1 ng/mL (11.1-264.0)
[2022-05-19 15:00] LABS: Vitamin B12* 406 pg/mL (243-894)
[2022-05-19 15:24] LABS: Glucose* 96 mg/dL (60-115)
== END 2022-05-19 10:22 | disposition home or self-care (01) ==
PROVIDERS: PCP Physician Assistant Medical; Visit Provider Physician Assistant Medical
DX: R25.2 Cramp and spasm (principal); I10 Essential (primary) hypertension
CPT/HCPCS: 80053; 82306; 82607; 82728; 84443

== ENCOUNTER 2022-06-28 10:18 | Outpatient (CLI) | payer SELFPAY ==
--- OUTSIDE RECORDS SUMMARY | 2022-06-28 10:23 | XMS_ITS | Encounter Summary ---
:1970 Author Organization [facility] Address [address] [place] [address] Care Team Providers Name Role Phone Deyvi [...] LAP,PARTIAL NEPHRECTOMY HAND ASSISTED LAPAROSCOPIC RIGHT NEPHRECTOMY [address] [place] [address] Phone: Referral ID Status Reason Start Date Expiration Date Visits Requ ested Visits Authorized [id number] 1 1 Encounter Details Date Type Department Care Team Description 01/16/2021 - [facility] Maria De Jesus Apolonia Renal mas s (Primary 01/17/2021 Encounter Ana Lilia Elise MD Dx) [facility] [address] [place] [address] [address] [place] [id number] Social History Tobacco Use Types Packs/Day Years [...] through Care Everywhere. Nephrectomy, Discharge Instructions for (Maltese)documented in this encounter Medications at Time of [...] from the original note were not included. [facility] Inpatient Progress Note Pain ok. Kiki [...] Lm Burks - 01/15/2021 9:03 AM CDT BOX OFFICE AGENT medications updated by Medication Scribe prior to surgery via phone call with patient??(last doses completed by Nurse) Medication history sources: Patient and H&P In the past week, patient estimated taking medication this percent of the time: Greater than 90% Adherence assessment: N/A Not Observed Significant changes made to the medication list: Patient reports no longer taking the following meds (med scribe removed from BOX OFFICE AGENT med list): Tramadol, Cylclobenzaprine Additional medication history [...] at PRN Yes Reported, Patient Dinh Burks [facility] Medication Scribe [facility] documented in this encounter H&P Notes [...] [place] 1970, 50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 Wide and high renal vein but patent. ANESTHESIA General STAFF Oil Expert: Serene Whittington RN Scrub Person: Gabriel Powers [...] Hemoglobin 11.2 (L) 11.7 - 15.7 01/17/2021 [place] g/dL 9:[address] [facility] Specimen Anatomical Collection Method Collection Time Receive d Time (Source) Location / / Volume Laterality Blood 01/17/2021 9:35 AM 9:36 CDT AM CDT Marilin Temple PA-C LAB - BLOOD ORDERABLES Performing Organization Address City/State/ZIP Code Phon e Number [facility] [address] [place] [address] [phone] [facility] [address] [place] [address], [facility] [phone] (ABNORMAL) Creatinine (01/17/2021 9:35 AM CDT) athologist Signature Creatinine 1.24 (H) 0.52 - 01/17/2021 [place] 1.04 mg/dL 10:[address] [facility] GFR Estimate 51 (L) >60 01/17/2021 [place] mL/min/{1. 10:16 AM CDT [facility] 73_m2} HOSPITAL Comment: Non GFR Calc Starting 07/11/2018, serum creatinine ba sed estimated GFR (eGFR) will be calculated using the Chronic Kidney Dise ase Epidemiology Collaboration (CKD-EPI) equation. GFR Estimate If 59 (L) >60 mL/min/{1.73_m2} 01/17/2021 10 :16 AM [facility] Comment: GFR Calc Starting 07/11/2018, serum creatinine [...] Address City/State/ZIP Code Phon e Number [facility] [address] [place] [address] [phone] [facility] [address] [place] [address], [place] [phone] XR Chest Port 1 View (01/16/2021 9:32 [...] silhouettes are normal. WELLINGTON DENSON MD Noe Quionnes MD IMG DIAGNOSTIC IMAGING ORDER CAL Surgical pathology exam (01/16/2021 8:31 AM CDT) Component Value Ref Test Analysis Performed At [facility] Range Method Time Signature Copath Report Patient Name: PILY BOJORQUEZ MR#: [id number] Specimen #: [id number] Collected: 01/16/2021 Received: 01/16/2021 Reported: 01/19/2021 15:33 [...] in Nonneoplastic Kidney: ?- None identified CAP [facility] August 2019 Annual Release Electronically signed [...] remaini ng renal parenchyma is grossly unremarkable. Folding Machine Operator sections are submitted. Summary of Sections: A1 [...] of this testing was completed at the [facility], with the professional compo nent performed at the [facility], [address] [place] [address] ??[phone] ([phone]) CPT Codes: A: 42047-YV2 COLLECTION SITE: Client: [facility] Location: [facility] (S) Specimen (Source) Anatomical Collection Method Collection Time Re ceived Time Location / / Volume Laterality Tissue RIGHT KIDNEY 01/16/2021 8:31 AM STRUCTURE / CDT Unknown Comment: *[id number] Apolonia [place] Performing Organization Address City/State/ZIP Code Phon e Number [place] ABO/Rh type and screen (01/16/2021 6:45 AM CDT) Patholo gist Method Time Signature ABO B 01/16/2021 [place] 7:[address] [facility] RH(D) Neg [facility] Antibody Neg 01/16/2021 [place] Screen 7:[address] [facility] Test Valid [facility] 01/16/2021 [place] Only At [facility] 7:12 AM CDT [facility] HOSPITAL Specimen 01/19/2021 01/16/2021 [place] Expires 7:[address] [facility] Blood Bank This specimen was not labele d according to requirements for establishing a blood type for 01/16/2021 [place] Comment transfusion purposes. ??The patient can be transfused with type O red cells until a new 7:12 AM CDT [facility] specimen is obtained to conf irm the patient's blood type, at which time type-specific HOSPITAL blood can be transfused. Specimen Anatomical Collection Method Collection Time Receive d Time (Source) Location / / Volume Laterality Blood 01/16/2021 6:45 AM 7:02 CDT AM CDT Noe Quinones MD LAB - BLOOD BANK TEST ORDER Performing Organization Address City/State/ZIP Code Phon e Number [facility] [address] [phone] [facility] [address] [address], [facility] [phone] Potassium (01/16/2021 6:45 AM CDT) P athologist Signature Potassium 4.2 3.4 - 5.3 01/16/2021 [place] mmol/L 7:[address] [facility] Comment: Specimen slightly hemolyzed, po tassium may be falsely elevated Specimen Anatomical Collection Method Collection Time Receive d Time (Source) Location / / Volume Laterality Blood 01/16/2021 6:45 AM 7:02 CDT AM CDT Noe Quinones MD LAB - BLOOD ORDERABLES Performing Organization Address City/State/ZIP Code Phon e Number [facility] [address] [address] [address] [facility] [address] [place] [address], [place] [phone] HCG qualitative urine (01/16/2021 6:00 AM CDT) P athologist Signature HCG Qual Urine Negative NEG^Negati 01/16/2021 [place] ve 6:[address] [facility] Comment: This test is for screening purposes. ??R esults should be interpreted along with the clinical picture. ??Confirmation te sting is available if warranted by ordering [id number], HCG Quantitative Pregna ncy. Specimen Anatomical Collection Method Collection Time Receive d Time (Source) Location / / Volume Laterality Urine URINE SPECIMEN / 01/16/2021 6:00 AM 01/16 6:12 Unknown CDT AM CDT Noe Quinones MD LAB - URINE ORDERABLES Performing Organization Address City/State/ZIP Code Phon e Number [facility] [address] [place] [address] [address] [facility] [address] [place] [address] [address], [place] [phone] Asymptomatic SARS-CoV-2 COVID-19 Virus (Coronavirus) by PCR (01/16/2021 6:00 AM CDT) [facility] gist Method Time Signature SARS-CoV-2 Nasopharyngeal 01/16/2021 [place] Virus 6:11 AM CDT [facility] Source SARS-CoV-2 NEGATIVE 01/16/2021 [place] PCR Result 6:[address] [facility] Comment: SARS-CoV2 (COVID-19) RNA not de tected, presumed negative. SARS-CoV-2 PCR Comment (Note) 01/16/2021 6:[address] [facility] Comment: Testing was performed using [...] exposure or clinical pr esentation suggests COVID-19. [facility] are certi fied under the Clinical [...] Organization Address City/State/ZIP Code Phon e Number [place] [address] [place] [address] [phone] [facility] [address] [address] [address], [facility] [phone] LAB RESULT - HIM SCAN (01/14/2021 12:00 [...] mg, Oral, EVERY 6 HOURS PRN, moderate pain (4-6), Starting on Tue01/16/21 at 2112 documented in [...] dexter APRN CRNA) Routine, 2 g, Intravenous, PRE-OP/PRE-MD OCEDURE, Starting Tue01/16/21 at 0602, For 1 [...] famotidine (PEPCID) tablet 20 mg(Linked Group 1) 1128 (Given - Provider: Renita Love RN)2019 (Given [...] 3 mL 1128 (Given - Provider: Renita Loev RN)1743 (Given - Provider: Hailey Medellin RN)1916 (Not Given - Provider: Hailey Medellin RN - Reason: Other - Comment: previously given)2338 (Given - Provider: Tone Bravo RN) 0737 (Given - Provider: Jhony Rasmussen N)1754 (Not Given - Provider: Hailey Medellin RN - Reason: No IV Access) 3 mL, Intracatheter, EVERY 8 HOURS, Firs t dose on Tue01/16/21 at 1100, to lock peripheral IV dormant line Continuous Medication Order 01/15/2021 01/16/2021 01/17/2021 lactated ringers infusion 0644 (New Bag - Provider: Saba Gutiérrez RN)0821 (New Bag - Provider: Kailee Cunningham APRN EVENT MARKETING ASSISTANT)0838 (Anesthesia Volume Adjustment - Provider: Kailee Cunningham APRN EVENT MARKETING ASSISTANT) at 25 mL/hr, Intravenous, CONTINUOUS, IF patient [...] Tone Bravo RN)0736 (Given - Provider: Tone Braov RN)1157 (Given - Provider: Hailey Medellin RN)1653 [...] For ordered IV doses 0.1-2mg give I DESIZING PAD OPERATOR. Give each 0.4mg over 15 seconds in [...] mg (CANCELED) 1655 (Given - Provider: Karen Hughes RN) 5-10 [...] Administer over 2-5 Minutes, Starting Tue01/16/21 at 1059
This is Step [...] HOURS PRN, nausea, vomiting, Starting Tue01/16/21 at 1059
This is Step 2 of nausea and vomiting management. If nausea not resolved in 15-30 minutes, Notify provider.
documented in this encounter Care Teams Sand Mixer Operator Relationship Specialty Start Date End Date Deyvi Vick PA-C PCP - General 01/09/21 [place] [id number] [place] [address] documented as of this encounter
--- OUTSIDE RECORDS SUMMARY | 2022-06-28 10:23 | XMS_ITS | Encounter Summary ---
:1970 Author Organization [facility] Address [address] [place] [address] Care Team Providers Name Role Phone Deyvi [...] NEPHRECTOMY [address] [place] [address] Phone: Referral ID Status Reason Start Date Expiration Date Visits Requ ested Visits Authorized [id number] 1 1 Encounter Details Date Type Department Care Team Description 01/16/2021 Surgery [facility] Apolonia Noel H AND ILIA Sung PeriOP LAPAROSCOPIC RIGHT Services [facility] NEPHRECTOMY [address] [place] [address] [id number] [place] [id number] (Wo rk) Surgery Details Date/Time Status Location OR Service Patient Case Class Case Tr auma Class Type Case? 01/16/21 7:30 Posted OR OR 41 Urology Surgery AM Admit Panel 1 Procedure LRB Anes Op Region Wound Class Commen ts HAND ASSISTED LAPAROSCOPIC Right General Abdomen II-Clean Contaminated RIGHT NEPHRECTOMY Surgeon Surgeon Role Service Panel Apolonia Noel MD Primary Urology 1 Marilin Temlpe PA-C Assisting 1 documented in this encounter [...] through Care Everywhere. Nephrectomy, Discharge Instructions for (Setswana)documented in this encounter Medications at Time of [...] Lm Burks - 01/15/2021 9:03 AM CDT WATER POLLUTION CONTROL TECHNICIAN medications updated by Medication Scribe prior to surgery via phone call with patient??(last doses completed by Nurse) Medication history sources: Patient and H&P In the past week, patient estimated taking medication this percent of the time: Greater than 90% Adherence assessment: N/A Not Observed Significant changes made to the medication list: Patient reports no longer taking the following meds (med scribe removed from WATER POLLUTION CONTROL TECHNICIAN med list): Tramadol, Cylclobenzaprine Additional medication history [...] at PRN Yes Reported, Patient Dinh Burks, [facility] Medication [facility] documented in this encounter H&P Notes Noe [...] 8:54 AM CDT UROLOGY OPERATIVE REPORT Pily 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 Wide and high renal vein but patent. ANESTHESIA General STAFF Bottom Man: Serene Whittington RN Scrub Person: Gabriel Powers [...] Calls appropriately. Plan of Care - Hailey Mdeellin RN - 01/16/2021 10:50 PM CDT Patient [...] Hemoglobin 11.2 (L) 11.7 - 15.7 01/17/2021 [place] g/dL 9:57 AM CDT [facility] Specimen Anatomical Collection Method Collection Time Receive d Time (Source) Location / / Volume Laterality Blood 01/17/2021 9:35 AM 9:36 CDT AM CDT Marilin Temple PA-C LAB - BLOOD ORDERABLES Performing Organization Address City/State/ZIP Code Phon e Number M [facility] [address] [phone] [facility] [address] [address] [address], [place] [phone] (ABNORMAL) Creatinine (01/17/2021 9:35 AM CDT) athologist Signature Creatinine 1.24 (H) 0.52 - 01/17/2021 [place] 1.04 mg/dL 10:16 AM CDT [facility] GFR Estimate 51 (L) >60 01/17/2021 [place] mL/min/{1. 10:16 AM T [facility] 73_m2} HOSPITAL Comment: Non GFR Calc Starting 07/11/2018, serum creatinine ba sed estimated GFR (eGFR) will be calculated using the Chronic Kidney Dise [facility] Epidemiology Collaboration (CKD-EPI) equation. GFR Estimate If 59 (L) >60 mL/min/{1.73_m2} 01/17/2021 10 :16 AM [place] [facility] Comment: GFR Calc Starting 07/11/2018, serum creatinine ba sed estimated GFR (eGFR) will be calculated using the Chronic Kidney Dise [facility] Epidemiology Collaboration (CKD-EPI) equation. Specimen Anatomical Collection Method Collection Time Receive d Time (Source) Location / / Volume Laterality Blood 01/17/2021 9:35 AM 9:36 CDT AM CDT Marilin Temple PA-C LAB - BLOOD ORDERABLES Performing Organization Address City/State/ZIP Code Phon e Number M [facility] [address] [address] [facility] [address] [place] [address], [facility] [phone] XR Chest Port 1 View (01/16/2021 9:32 [...] Component Value Ref Test Analysis Performed At [facility] Range Method Time Signature Copath Report Patient Name: PILY BOJORQUEZ MR#: [id number] Specimen #: [id number] Collected: 01/16/2021 Received: 01/16/2021 Reported: 01/19/2021 15:33 [...] in Nonneoplastic Kidney: ?- None identified CAP [facility] August 2019 Annual Release Electronically signed out [...] remaini ng renal parenchyma is grossly unremarkable. Actuarial Associate sections are submitted. Summary of Sections: A1 [...] of this testing was completed at the [facility], with the professional compo nent performed at the [facility], [address] [place] [address] ??[phone] ([phone]) CPT Codes: A: 40663-HM4 COLLECTION SITE: Client: [facility] Location: [facility] (S) Specimen (Source) Anatomical Collection Method Collection Time Re ceived Time Location / / Volume Laterality Tissue RIGHT KIDNEY 01/16/2021 8:31 AM STRUCTURE / CDT Unknown Comment: *[id number] Apolonia Noel MD LAB - BEAKER AP Performing Organization Address City/[facility]/ZIP [facility] Phon e Number [place] ABO/Rh type and screen (01/16/2021 6:45 AM CDT) [facility] gist Method Time Signature ABO B 01/16/2021 [place] 7:43 AM CDT [facility] RH(D) Neg [facility] Antibody Neg 01/16/2021 [place] Screen 7:43 AM CDT [facility] Test Valid [place] 01/16/2021 [place] Only At [facility] 7:[address] [facility] [place] Specimen 01/19/2021 01/16/2021 [place] Expires 7:12 AM CDT [facility] Blood Bank This specimen was not labele d according to requirements for establishing a blood type for 01/16/2021 [place] Comment transfusion purposes. ??The patient can be transfused with type O red cells until a new 7:12 AM CDT [facility] specimen is obtained to conf irm the patient's blood type, at which time type-specific HOSPITAL blood can be transfused. Specimen Anatomical Collection Method Collection Time Receive d Time (Source) Location / / Volume Laterality Blood 01/16/2021 6:45 AM 7:02 CDT AM CDT Noe Quinones MD LAB - BLOOD BANK TEST ORDER Performing Organization Address City/[facility]/ZIP [facility] Phon e Number M [facility] [address] [phone] [facility] [address] [address], [place] [phone] Potassium (01/16/2021 6:45 AM CDT) P athologist Signature Potassium 4.2 3.4 - 5.3 01/16/2021 [place] mmol/L 7:37 AM CDT [facility] Comment: Specimen slightly hemolyzed, po tassium may be falsely elevated Specimen Anatomical Collection Method Collection Time Receive d Time (Source) Location / / Volume Laterality Blood 01/16/2021 6:45 AM 7:02 CDT AM CDT Authorizing Provider Result Mahogany Quinones MD LAB - BLOOD ORDERABLES Performing Organization Address City/State/ZIP Code Phon e Number M [facility] [address] [place] [address] [facility] [address] [place] [address], [place] [phone] HCG qualitative urine (01/16/2021 6:00 AM CDT) athologist Signature HCG Qual Urine Negative NEG^Negati 01/16/2021 [place] ve 6:16 AM CDT [facility] Comment: This test is for screening purposes. ??R esults should be interpreted along with the clinical picture. ??Confirmation te sting is available if warranted by ordering [id number], HCG Quantitative Pregna ncy. Specimen Anatomical Collection Method Collection Time Receive d Time (Source) Location / / Volume Laterality Urine URINE SPECIMEN / 01/16/2021 6:00 AM 01/16 6:12 Unknown CDT AM CDT Noe Quinones MD LAB - URINE ORDERABLES Performing Organization Address City/State/ZIP Code Phon e Number [facility] [address] [place] [address] [facility] [address] [place] [address], [place] [phone] Asymptomatic SARS-CoV-2 COVID-19 Virus (Coronavirus) by PCR (01/16/2021 6:00 AM CDT) Patholo gist Method Time Signature SARS-CoV-2 Nasopharyngeal 01/16/2021 [place] Virus 6:11 AM CDT [facility] Source SARS-CoV-2 NEGATIVE 01/16/2021 [place] PCR Result 6:33 AM CDT [facility] Comment: SARS-CoV2 (COVID-19) RNA not de tected, presumed negative. SARS-CoV-2 PCR Comment (Note) 01/16/2021 6:33 A M CDT [facility] Comment: Testing was performed using the christopher [...] exposure or clinical pr esentation suggests COVID-19. [facility] are certi fied under the Clinical [...] Organization Address City/State/ZIP Code Phon e Number [facility] [address] [address] [facility] [address] [address], [facility] [phone] LAB RESULT - HIM SCAN (01/14/2021 12:00 [...] or 50 ml bag for PEDS (COMPLETED) 9566 (New Bag - Provider: Sergei Hughes, RN)2338 (New Bag - Provider: Tone Bravo, RN) 0737 (New Bag - Provider: Tone Bravo, RN) Routine, 1 g, Intravenous, EVERY 8 HOURS , First dose on Tue01/16/21 at 1600, For 3 doses, Indications: Perioperative Pharmacoprophylaxis ceFAZolin (ANCEF) intermittent infusion 2 g in 100 mL dextrose PRE-MIX (COMPLETED) 0745 (Given - Provider: Kailee dexter APRN APPAREL MANAGER) Routine, 2 g, Intravenous, PRE-OP/PRE-SD OCEDURE, Starting [...] (New Bag - Provider: Kailee Cunningham APRN APPAREL MANAGER)0838 (Anesthesia Volume Adjustment - Provider: Kailee [...] 0.1-1 mL 0648 (Given - Provider: Emely Gutirérez RN) 0.1-1 mL, Other, EVERY 1 HOUR [...] For ordered IV doses 0.1-2mg give I FORESTRY FACULTY MEMBER. Give each 0.4mg over 15 seconds in [...] provider.
documented in this encounter Care Teams Autoclave Operator Relationship Specialty Start Date End Date Deyvi Vick PA-C PCP - General 01/09/21 [facility] [address] [place], [place] [address] documented as of this encounter
--- OUTSIDE RECORDS SUMMARY | 2022-06-28 10:23 | XMS_ITS | Clinical Summary ---
:1970 Author Organization [facility] Address [address] [place] [address] Care Team Providers Name Role Phone Deyvi [...] T ype Group Dates [employer]REFERRED[employer] PREFERRED[employer] HMO [id number] 2020-[employer] [phone] [address] [address] [address] [place] [address] Advance Directives For more information, please contact: [phone] Latest Code Status on File Code Status Date Activated Date Inactivated Comments Full Code 01/16/2021 9:11 AM 01/17/2021 8:06 PM All basic an d advanced life-sustaining interventions are performed as remington ropriate Question Answer Comments Code status determined by: Unable to determine; FULL CODE un til documents or legal decision maker available Care Teams Prune Washer Relationship Specialty Start Date End Date Deyvi Vick PA-C PCP - General 01/09/[address] [place] [address]
--- OUTSIDE RECORDS SUMMARY | 2022-06-28 10:23 | XMS_ITS | Encounter Summary ---
:1970 Author Organization [facility] Address [address] [place] [address] Care Team Providers Name Role Phone Deyvi [...] [address], [address] [place] [address] Phone: Referral ID Status Reason Start Date Expiration Date Visits Requ ested Visits Authorized [id number] 1 1 Encounter Details Date Type Department Care Team Description 01/16/2021 Anesthesia Event [facility] Jeremiah Quinones MD [facility] Services ANESTHESIOLOGIS [address], [address] [place] [address] [place] [address] [phone] Anesthesia Record Procedure Summary Procedure Name Responsible Anesthesia Start Anesthesia Stop Anesthesiologist Time Time HAND ASSISTED Noe Quinones MD 01/16/21 0733 01/16/21 0 924 LAPAROSCOPIC RIGHT NEPHRECTOMY (Right: Abdomen) Events Date Time Event Comment 01/16/2021 0641 0714 WARP TRUCKER Ready for Procedure 0733 An Start 0733 [...] No; 01/16/21 0740 by 01/16/21 0900 by /GI/SANDWICH BOARD CARRIER Pelvic Pk, Serene Pk, Serene Procedure; 16 fr SHELBY Shah RN ETT Placement Date: 01/16/21 0742 by 01/16/21 0910 b y 01/16/21; Placement Kailee Cunningham, Kailee Blackwell nd Time: 741 (created OCULAR CARE TECHNICIAN WARP TRUCKER D, OCULAR CARE TECHNICIAN WARP TRUCKER via procedure documentation); Mask Ventilation: 1; Ease of Intubation: Easy; Technique: Direct laryngoscopy; ETT Type: Single; Tube Size: 7 mm; DL Blade Size: Lares 2; Grade View: 2; Adjucts: Stylet; Placement Person: WARP TRUCKER; Attempts: 1; Depth: 21 cm documented in [...] OR Notes Anesthesia Postprocedure Evaluation - Noe Quinones MD - 01/16/2021 2:37 PM CDT Patient: [...] Last vitals prior to Anesthesia Care Transfer: WARP TRUCKER VITALS 01/16/2021 0842 - 01/16/2021 0942 01/16/2021 Resp Rate (observed): 16 EKG: Sinus rhythm Electronically Signed By: Noe Quinones MD January 16, 2021 2:38 PM Anesthesia Procedure Notes - Kailee Cunningham APRN CRNA - 01/16/2021 8:08 AM CDTAssociated Order(s): Airway Airway Patient location during procedure: OR Procedure Start/Stop Times: 01/16/2021 7:42 AM Staff - Anesthesiologist: Noe Quinones MD WARP TRUCKER: Kailee Cunningham APRN WARP TRUCKER Performed By: RAJI Consent for Airway Urgency: [...] and realistic alternatives discussed. Questions answered and patient/insurance claims representative(s) expressed understanding. - Discussed with: Patient Postoperative Care Pain management: IV analgesics. PONV prophylaxis: Ondansetron (or other 5HT-3), Dexamethasone or Solumedrol, Background Propofol Infusion Comments: Noe Quinones MD documented in this encounter Miscellaneous Notes Anesthesia Care Transfer Note - Kailee Cunningham APRN WARP TRUCKER - 01/16/2021 9:25 AM CDT Patient: Pily [...] report on patient's clinical status given to SAFETY INSTRUCTION POLICE OFFICER, RN questions answered. Handoff Report: Identifed the Patient, Identified the Reponsible Provider, Reviewed the pertinent medical history, Discussed the surgical course, Reviewed Intra-OP anesthesia mangement and issues during anesthesia, Set expectations for post-procedure period and Allowed opportunity for questions and acknowledgement of understanding Vitals: (Last set prior to Anesthesia Care Transfer) WARP TRUCKER VITALS 01/16/2021 0842 - 01/16/2021 0925 01/16/2021 [...] - ? Anesthesiologist: ??Jeremiah Quinones MD ? WARP TRUCKER: Kailee Cunningham APRN CRNA ? Performed By: WARP TRUCKER Consent for Airway ? Urgency: elective Indications [...] Administration Time: 7:42 AM Noe Quinones MD [place] ANESTHESIA documented in this encounter Visit Diagnoses [...] mg documented in this encounter Care Teams Clinical Leader Relationship Specialty Start Date End Date Deyvi Vick PA-C PCP - General 01/09/[address] [facility] [place] [address] documented as of this encounter
--- OUTSIDE RECORDS SUMMARY | 2022-06-28 10:23 | XMS_ITS | Encounter Summary ---
:1970 Author Organization [facility] Address [address] [place] [address] Care Team Providers Name Role Phone Deyvi [...] on filedocumented in this encounter Care Teams Septic Tank Setter Relationship Specialty Start Date End Date Deyvi Vick PA-C PCP - General 01/09/21 [facility] [address] [place] [id number] documented as of this encounter
--- OUTSIDE RECORDS SUMMARY | 2022-06-28 10:23 | XMS_ITS | Encounter Summary ---
:1970 Author Organization [facility] Address [address] [place] [address]. [place] [address] Care Team Providers Name Role Phone Deyvi Vick PA-C Primary Care Provider Encounter Details Date Type Department Care Team Description 01/21/2021 Telephone [facility] Services - José Wood MD Surgical Specialties [facility] Service Line [address] [place] [address] [place], [place] [address] [phone] Social History Tobacco Use Types Packs/Day Years [...] on filedocumented in this encounter Care Teams Mobile Application Development Lead Relationship Specialty Start Date End Date Deyvi Vick PA-C PCP - General 01/09/21 [place] [address] [address] [place] [id number] documented as of this encounter
--- OUTSIDE RECORDS SUMMARY | 2022-06-28 10:23 | XMS_ITS | Encounter Summary ---
:1970 Author Organization [facility] Address [address] [place] [address] Care Team Providers Name Role Phone Unavailable Primary Care Provider Unavailable Encounter Details Date Type Department Care Team Description 01/05/2021 Orders Only [facility] José Pretty Encounter for Ana Lilia Lewis OR MD Arik screening for other [address] [facility] viral diseases [place] [address] LTD [phone] [id number] [place] [address] (Wo rk) Social History Tobacco Use Types [...]
--- OUTSIDE RECORDS SUMMARY | 2022-06-28 10:23 | XMS_ITS ---
:1970 Author Care Team Providers Name Role Phone [facility] Primary Care Provider [phone] Allergies Code Code System Name Reaction Severity [...] CT, Chest + Abdomen + Pelvis, W/ [facility] Radiology Department Contrast [address] [place] [address] (Work Place) 12/15/2021 CT, Chest + Abdomen + Pelvis, W/ [facility] Radiology Department Contrast [address] [place] [address] (Work Place) 12/15/2021 CT, Abdomen + Pelvis, W/o Contrast [facility] Radiology Department [address] [place] [address] (Work Place) 04/28/2022 CT, Chest + Abdomen + Pelvis, W/ [facility] Radiology Department Contrast [address] [place] [address] (Work Place) Results Lab Results None recorded. Past Encounters Encounter Date Diagnosis Provider 07/13/2021 Malignant Tumor of Kidney José lemos MD: [address] [place] [address], Ph. 02/19/2021 Malignant Tumor of Kidney José lemos MD: [address] [place] [address], Ph. 12/31/2020 Renal Mass José Pretty MD: [address] [facility], [address], [place] [address], Ph. Social History Tobacco Smoking Status Former [...]
--- OUTSIDE RECORDS SUMMARY | 2022-06-28 10:23 | XMS_ITS | Clinical Summary ---
:1970 Author Organization [facility] [place] [address] Care Team Providers Name Role Phone Clinic, [...] 11/30/1982 Depression screening for age 12+ 1983 HIV for age 15-65 11/30/1986 BMI (ht and wt on same day) [...] ss Type Group PREFERRED ONE PREFERRED ONE [id number] 2020-Present [address] [address] [place] [address] [employer] [id number] 2018-Present [address] [address] [place] [address] Care Teams Conditioning Machine Operator Relationship Specialty Start Date End Date Clinic, No Pcp Or PCP - General 03/08/18 .
--- OUTSIDE RECORDS SUMMARY | 2022-06-28 10:23 | XMS_ITS | Continuity of Care Document ---
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 Social History Type Response Date Comment Source This section is an empty social history section. [facility]D
--- NOTE | 2022-06-28 11:00 | CRLHL7_ITS ---
For Patients: As a result of the Century Cures Act, medical imaging exams and procedure reports are released immediately into your electronic medical record. You may view this report before your referring provider. If you have questions, please contact your health care provider. Indication: MAL;IGNANT TUMOR OF KIDNEY Technique: Postcontrast CT chest, abdomen and pelvis. 70 cc Isovue 370 intravenous contrast. Please note that all CT scans at this facility use dose modulation, iterative reconstruction, and/or weight-based dosing when appropriate to reduce radiation dose to as low as reasonably achievable. Comparison: 01/05/2022, 06/30/2021 Findings: In the chest, the lungs are clear. No infiltrate, edema, effusion, pneumothorax or nodule. There is no mediastinal, hilar or axillary adenopathy. In the abdomen/pelvis, no intrahepatic mass. Normal gallbladder. Normal spleen, pancreas, adrenal glands and left kidney. Right nephrectomy noted. Normal right adrenal gland. Vascular calcifications. No aneurysm. No abdominal or pelvic adenopathy. Normal bladder, uterus and adnexa. No bowel obstruction or free air. No free fluid or abscess. Mild sigmoid diverticulosis. A few scattered benign bone islands are present within the pelvis, as before. Impression: No evidence of metastatic disease. Please note that all CT scans at this facility use dose modulation, iterative reconstruction, and/or weight-based dosing when appropriate to reduce radiation dose to as low as reasonably achievable. Dictated by Jhonny Tapia MD @ 07/01/2022 12:40:06 PM (Electronically Signed)
== END 2022-06-28 10:19 | disposition home or self-care (01) ==
LOC: CT 10:21
PROVIDERS: PCP Physician Assistant Medical
DX: C64.9 Malignant neoplasm of unspecified kidney, except renal pelvis (principal)
CPT/HCPCS: 71260; 74177; Q9967

== ENCOUNTER 2022-08-17 09:55 | Outpatient (CLI) | payer OTHER, BC, SELFPAY ==
--- NOTE | 2022-08-17 10:15 | CRLHL7_ITS ---
For Patients: As a result of the Century Cures Act, medical imaging exams and procedure reports are released immediately into your electronic medical record. You may view this report before your referring provider. If you have questions, please contact your health care provider. BILATERAL SCREENING MAMMOGRAM WITH COMPUTER-AIDED DETECTION TECHNIQUE: CC and MLO views were obtained. These mammographic images have been obtained using full-field digital technique. These mammographic images were interpreted with the benefit of computer-aided detection. COMPARISON FILM: 12/06/17. FINDINGS: There are scattered areas of fibroglandular density. IMPRESSION: There is no radiographic evidence for malignancy. ASSESSMENT: BI-RADS Category 1: Negative RECOMMENDATION: Routine screening mammogram in 1 year. A lay language report of this examination will be provided to the patient. ALON FREEMAN M.D. Diagnostic/Nuclear Medicine Radiologist [email or web address] NELSON:royce Transcribed: 08/17/2022, 3:[address]/Dictated by: Alon Freeman MD @ 08/17/2022 10:30:00 AM (Electronically Signed)
== END 2022-08-17 09:56 | disposition home or self-care (01) ==
LOC: MAMMO 09:58
PROVIDERS: PCP Physician Assistant Medical; Visit Provider Physician Assistant Medical
DX: Z12.31 Encounter for screening mammogram for malignant neoplasm of breast (principal)
CPT/HCPCS: 77063; 77067

== ENCOUNTER 2022-10-13 07:02 | Outpatient (CLI) | payer OTHER, BC, SELFPAY ==
--- NOTE | 2022-10-13 07:15 | CRLHL7_ITS ---
For Patients: As a result of the Century Cures Act, medical imaging exams and procedure reports are released immediately into your electronic medical record. You may view this report before your referring provider. If you have questions, please contact your health care provider. Indication: PALPABLE AREA IN LEFT NECK x 1 WEEK, HX OF CANCER Technique: PALPABLE AREA IN LEFT NECK x 1 WEEK, HX OF CANCER Comparison: None Findings: Mildly prominent left cervical lymph node is present measuring 1.8 x 0.6 x 1.1 cm. No abnormal vascularity. Impression: Mildly prominent left cervical lymph node. In the setting of malignancy, consider CT PET scan for further evaluation. If this demonstrates increased uptake on CT-PET, then biopsy could be considered. Dictated by Jhonny Tapia MD @ 10/13/2022 8:57:08 AM (Electronically Signed)
== END 2022-10-13 07:03 | disposition home or self-care (01) ==
LOC: US 07:03
PROVIDERS: PCP Physician Assistant Medical; Visit Provider Family Medicine
DX: R22.1 Localized swelling, mass and lump, neck (principal)
CPT/HCPCS: 76536

== ENCOUNTER 2022-11-09 07:31 | Outpatient (CLI) | payer OTHER, BC, SELFPAY ==
--- NOTE | 2022-11-09 08:00 | CRLHL7_ITS ---
For Patients: As a result of the Century Cures Act, medical imaging exams and procedure reports are released immediately into your electronic medical record. You may view this report before your referring provider. If you have questions, please contact your health care provider. Indication: MALIGNANT TUMOR OF KIDNEY Technique: Postcontrast CT chest, abdomen and pelvis. 75 cc Isovue 370 intravenous contrast. Oral water. Please note that all CT scans at this facility use dose modulation, iterative reconstruction, and/or weight-based dosing when appropriate to reduce radiation dose to as low as reasonably achievable. Comparison: 06/28/2022 Findings: In the chest, the lungs are clear. No adenopathy. No fracture. In the abdomen, the right kidney is absent. Normal left kidney. Normal liver, gallbladder, pancreas, adrenal glands and spleen. No bowel obstruction or adenopathy. In the pelvis, normal bladder. Incidental cervical nabothian cysts. Incidental small cyst left ovary. Unremarkable right ovary. Stable benign bone islands. No adenopathy, free air, free fluid, abscess or bowel obstruction. Normal appendix. Impression: Stable exam. No evidence of metastatic disease. Please note that all CT scans at this facility use dose modulation, iterative reconstruction, and/or weight-based dosing when appropriate to reduce radiation dose to as low as reasonably achievable. Dictated by Jhonny Tapia MD @ 11/09/2022 1:24:49 PM (Electronically Signed)
[2022-11-09 08:12] LABS: Creatinine* 1.1 mg/dL (0.5-1.5); Estimated Glomerular Filt Rate 61 ml/min
--- NOTE | 2022-11-09 08:30 | CRLHL7_ITS ---
For Patients: As a result of the Century Cures Act, medical imaging exams and procedure reports are released immediately into your electronic medical record. You may view this report before your referring provider. If you have questions, please contact your health care provider. INDICATION: MALIGNANT TUMOR OF KIDNEY COMPARISON: Ultrasound 10/13/2022 TECHNIQUE: A CT volumetric acquisition was performed of the neck during intravenous infusion of 75 cc Isovue 370 nonionic intravenous contrast. Please note that all CT scans at this facility use dose modulation, iterative reconstruction, and/or weight-based dosing when appropriate to reduce radiation dose to as low as reasonably achievable. FINDINGS: The CT images demonstrate normal aeration of the mastoid air cells and middle ear cavities. The paranasal sinuses are clear. The nasopharynx appears normal. The parotid and submandibular glands are of normal size and have uniform enhancement. The oropharynx appears normal. The valleculae, epiglottis, aryepiglottic folds and piriform sinuses appear normal. There is a normal appearance of the larynx and subglottic trachea. The thyroid gland is of normal size and has uniform density. There is no evidence of lymphadenopathy within the anterior and posterior cervical triangles or within the supraclavicular region. Normal osseous structures. IMPRESSION: No evidence of metastatic disease. Normal cervical lymph nodes. No suspicious lymph node. No indication for biopsy at this time. Please note that all CT scans at this facility use dose modulation, iterative reconstruction, and/or weight-based dosing when appropriate to reduce radiation dose to as low as reasonably achievable. Dictated by Jhonny Tapia MD @ 11/09/2022 1:18:28 PM (Electronically Signed)
== END 2022-11-09 07:32 | disposition home or self-care (01) ==
PROVIDERS: PCP Physician Assistant Medical; Visit Provider Family Medicine
DX: C64.9 Malignant neoplasm of unspecified kidney, except renal pelvis (principal); R22.1 Localized swelling, mass and lump, neck
CPT/HCPCS: 36415; 70491; 71260; 74177; 82565; Q9967

== ENCOUNTER 2023-05-26 09:34 | Outpatient (CLI) | payer OTHER, SELFPAY ==
--- NOTE | 2023-05-26 10:00 | CRLHL7_ITS ---
For Patients: As a result of the Century Cures Act, medical imaging exams and procedure reports are released immediately into your electronic medical record. You may view this report before your referring provider. If you have questions, please contact your health care provider. Indication: MALIGNANT NEOPLASM OF KIDNEY. L SPINE BACK PAIN Technique: CT Chest/Abd/Pelvis 74cc Isovue 370 and water prep Please note that all CT scans at this facility use dose modulation, iterative reconstruction, and/or weight-based dosing when appropriate to reduce radiation dose to as low as reasonably achievable. Comparison: 11/09/2022 Findings: In the chest, the lungs are clear. No nodule. No infiltrate or edema. No effusion or pneumothorax. No adenopathy. No fracture. In the abdomen, no suspicious intrahepatic mass. Gallbladder normal. Spleen normal. Normal adrenal glands. Postop changes right nephrectomy. Left kidney normal. Pancreas unremarkable. Atherosclerotic changes. No adenopathy. No bowel obstruction. In the pelvis, the bladder is normal. Normal uterus. No adnexal mass. No bowel obstruction or free air. No free fluid or abscess. Appendix normal. No pelvic or inguinal adenopathy. Stable benign bone island within the right posterior iliac bone. A few scattered benign bone islands are present elsewhere throughout the pelvis. Impression: Stable exam. No evidence of metastatic disease. Please note that all CT scans at this facility use dose modulation, iterative reconstruction, and/or weight-based dosing when appropriate to reduce radiation dose to as low as reasonably achievable. Dictated by Jhonny Tapia MD @ 05/27/2023 12:43:48 PM (Electronically Signed)
== END 2023-05-26 09:35 | disposition home or self-care (01) ==
LOC: CT 09:35
PROVIDERS: PCP Physician Assistant Medical; Visit Provider Urology
DX: C64.9 Malignant neoplasm of unspecified kidney, except renal pelvis (principal); M54.9 Dorsalgia, unspecified
CPT/HCPCS: 71260; 74177; Q9967

== ENCOUNTER 2023-09-13 09:02 | Outpatient (CLI) | payer OTHER, SELFPAY ==
--- NOTE | 2023-09-13 09:15 | MR_ITS ---
[address] [address] Phone:?[phone] Fax:?[phone] Referring Physician Information: Deyvi Vick PA-C [address] [facility] [address] Phone:?[phone] Fax:?[phone] Patient:?Pily Bojorquez D.O.B:?1970 Sex:?Female Phone:?[phone] [facility] MRN:?[id number] Exam Date:?09/13/2023 EXAM: MRI OF THE LUMBAR SPINE CLINICAL INFORMATION: 52-year-old female with persistent low back pain. COMPARISON STUDY: MR dated 12/23/2020. TECHNICAL INFORMATION: T1, T2 fast spin echo and STIR sagittal thin sections through the lumbar spine with T1 and T2 fast spin echo axial sections at selected levels. INTERPRETATION: There is normal segmentation of the lumbar vertebral elements with mild hyperlordosis of the lumbosacral curvature. Mild endplate irregularities are again noted in the upper lumbar lower thoracic distribution. Interim nephrectomy on the right is noted. Minimal annular bulge at the L4-5 level is again demonstrated, seen to a lesser extent at L5-S1 and unchanged. Facet arthrosis is mild at both levels are not changed. There is no canal or foraminal stenosis at any level. CONCLUSION: 1. Interim right nephrectomy with excision of a renal mass. 2. Mild degenerative changes in the lower lumbar spine without HNP, canal or foraminal stenosis are stable. Electronically signed on 09/13/2023 4:48:00 PM by Ryan Chou M.D.
--- OUTSIDE RECORDS SUMMARY | 2023-09-13 09:21 | XMS_ITS | Continuity of Care Document ---
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 Social History Type Response Date Comment Sourc e This section is an empty social history section. DoD
--- OUTSIDE RECORDS SUMMARY | 2023-09-13 09:21 | XMS_ITS | Encounter Summary ---
Author Name Unknown Organization [facility] Address [address] [place] [address] Care Team Providers Care Certified Activities Director Name Role Phone Deyvi Vick PA-C Primary Care Provider Encounter Details Date Type Department Care Team (Late st Contact Info) Description 01/21/2021 Telephone [facility] Services - Surgical Specialties Service Line [address] [place] [address] José Pretty MD [place] [facility] [address] [place], [place] [address] Social History Tobacco Use Types Packs/Day Years Used Date Smoking Tobacco: Former Other Smokeless Tobacco: Current Comments:Vaping Alcohol Use Standard Drinks/Week Comments Yes 0 (1 standard drink = 0.6 oz pur e alcohol) Occasional drink Sex and Gender Information Value Date Recorded Sex Assigned at Not on file Gender Identity Not on file Sexual Orientation Not on file COVID-19 Exposure Response Date Recorded In the last month, have you been in contact with someone who was confirmed or suspected to have Coronavirus / COVID-19? No / Unsure 01/16/2021 5:28 AM CDT documented as of this encounter Plan of Treatment Not on file documented as of this encounter Visit Diagnoses Not on filedocumented in this encounter Care Teams Certified Activities Director Relationship Specialty Start Date End Date Deyvi Vick PA-C [address] [place] [address] PCP - General 01/09/21 documented as of this encounter
--- OUTSIDE RECORDS SUMMARY | 2023-09-13 09:21 | XMS_ITS | Clinical Summary ---
Author Name Unknown Organization [place] Address [address] [place] [address] Care Team Providers Care Dog And Cat Food Cook Name Role Phone Deyvi Vick PA-C Primary Care Provider Allergies Active Allergy Reactions Criticality Noted Date Comments Sulfa Antibiotics Hives Medium 01/15/2021 Medications Medication Sig Dispensed Refills Start Date End Date Status amLODIPine (NORVASC) 5 MG tablet Take 5 mg by mouth every morning 0 Active naproxen sodium 220 MG capsule Take 220 mg by mouth as needed 0 Active aluminum chloride (DRYSOL) 20 % external solution Apply topically nightly as needed 0 Active lisinopril (ZESTRIL) 20 MG tablet Take 20 mg by mouth every morning 0 Active cetirizine (ZYRTEC) 10 MG tablet Take 10 mg by mouth every morning 0 Active ibuprofen (ADVIL/MOTRIN) 200 MG tablet Take 200 mg by mouth every 4 hours as needed for mild pain 0 Active HYDROmorphone (DILAUDID) 2 MG tabletIndications: Renal mass Take 1 tablet (2 mg) by mouth every 6 hours as needed for moderate to severe pain 15 tablet 0 01/17/2021 Active senna-docusate (SENOKOT-S/PERICOL MONY) 8.6-50 MG tabletIndications: Renal mass Take 1-2 tablets by mouth 2 times daily as needed for constipation 60 tablet 0 01/17/2021 Active Active Problems Problem Noted Date Diagnosed Date Renal mass 01/16/2021 Social History Tobacco Use Types Packs/Day Years Used Date Smoking Tobacco: Former Other Smokeless Tobacco: Current Comments:Vaping Alcohol Use Standard Drinks/Week Comments Yes 0 (1 standard drink = 0.6 oz pur e alcohol) Occasional drink Adolescent Education Answer Date Record ed Getting School Help Needed Not on file 05/08 Sex and Gender Information Value Date Recorded Sex Assigned at Not on file Gender Identity Not on file Sexual Orientation Not on file Last Filed Vital Signs Vital Sign Reading Time Taken Comments Blood Pressure 137/72 01/17/2021 5:19 PM CDT Pulse 64 01/17/2021 5:19 PM CDT Temperature 36.7 ??C (98.1 ??F) 01/17/2021 5:19 PM CD T Respiratory Rate 17 01/17/2021 5:19 PM CDT [...] OF HM ORDERS 1971 CT COLONOGRAPHY 1971 FIT 1971 FLEX SIG 1971 GLUCOSE 1971 MAMMO SCREENING 1971 YEARLY PREVENTIVE VISIT 1971 sDNA (Cologuard) 1971 COVID-19 Vaccine (#1) 06/02/1972 COLONOSCOPY 11/30/1981 COLORECTAL CANCER SCREENING 11/30/1981 HIV SCREENING 11/30/1986 HEPATITIS C SCREENING 11/30/1989 PAP 11/30/1992 HEPATITIS B IMMUNIZATION (3 of 4 - Hep B Twinrix 4-dose series) 11/13/2008 10/30/2008, 10/16/2008 LIPID 2011 LUNG CANCER SCREENING 11/30/2021 ZOSTER IMMUNIZATION (1 of 2) 11/30/2021 INFLUENZA VACCINE (#1) 2023 7, 05/25/2017, 04/16/2016, Additional history exists PHQ-2 (once per calendar year) 2023 DTAP/TDAP/TD IMMUNIZATION (3 - Td or Tdap) 01/13/2031 01/13/2021, 10/16/2008 HPV IMMUNIZATION Aged Out No longer e ligible based on patient's age to complete this topic IPV IMMUNIZATION Aged Out No longer e ligible based on patient's age to complete this topic MENINGITIS IMMUNIZATION Aged Out No l onger eligible based on patient's age to complete this topic Pneumococcal Vaccine: Pediatrics (0 to 5 Years) and At-Risk Patients (6 to 64 Years) Aged Out No longer eligible based on patient's age to complete this topic RSV MONOCLONAL ANTIBODY Aged Out No l onger eligible based on patient's age to complete this topic Advance Directives For more information, please contact: [phone] Latest Code Status on File Code Status Date Activated Date Inactivated Comments Full Code 01/16/2021 9:11 AM 01/17/2021 8:06 PM All b asic and advanced life-sustaining interventions are performed as appropriate Question Answer Comments Code status determined by: Unable to determine; FULL CODE until documents or legal decision maker available Care Teams Dog And Cat Food Cook Relationship Specialty Start Date End Date Deyvi Vick PA-C [facility] [address] [place] [address] PCP - General 01/09/21
--- OUTSIDE RECORDS SUMMARY | 2023-09-13 09:21 | XMS_ITS | Clinical Summary ---
Author Name Unknown Organization [facility] Address [place], [place] [address] Care Team Providers Care Washroom Attendant Name Role Phone Clinic, No Pcp Or Primary Care Provider Unavaila ble Allergies Active Allergy Reactions Criticality Noted Date Comments Sulfa (Sulfonamide Antibiotics) Other - Describe In Comment Field 03/08/2018 Hives Medications Medication Sig Dispensed Refills Start Date End Date Status lisinopril (PRINIVIL; ZESTRIL) 10 mg tablet Take 1 tablet by mouth once daily. 0 03/08/2018 Active cetirizine (ZYRTEC) 10 mg tablet Take 1 tablet by mouth once daily. 0 03/08/2018 Active amLODIPine (NORVASC) 10 mg tablet TAKE 1 TABLET (10 MG) BY MOUTH DAILY 0 03/19/2021 Active Social History Tobacco Use Types Packs/Day Years Used Date Smoking Tobacco: Former Smokeless Tobacco: Never Sex and Gender Information Value Date Recorded Sex Assigned at Not on file Gender Identity Not on file Sexual Orientation Not on file Obstetrics History Last Filed [...] age 18+ 11/30/1989 Hepatitis C screening for ag e 18-79 11/30/1989 Tetanus booster 1991 Colonoscopy through age 75 11/30/2016 Lipids for age 45-75 11/30/2016 Mammogram for age 45-75 11/30/2016 Pap test for age 21-65 04/18/2017 4, 04/18/2014 Zoster (shingles) series for age 50+ (1 of 2) 11/30/2021 Influenza for age 50-64 03/25/2023 Pneumococcal series for age 6-64 Aged Out No longer eligible b ased on patient's age to complete this topic Care Teams Washroom Attendant Relationship Specialty Start Date End Date Clinic, No Pcp Or . PCP - General 03/08/18
--- OUTSIDE RECORDS SUMMARY | 2023-09-13 09:21 | XMS_ITS | Referral Summary ---
Author Name Unknown Organization [facility] Address [address] [place] [address] Care Team Providers Care Jointer Submarine Cable Name Role Phone Deyvi Vick PA-C Primary Care Provider [phone] Allergies Active Allergy Reactions Criticality Noted Date [...] 01/16/2021 6:38 AM CDT Plan of Treatment Not on file Advance Directives For more information, please contact: [phone] Latest Code Status on File Code Status Date Activated Date Inactivated Comments Full Code 01/16/2021 9:11 AM 01/17/2021 8:06 PM All b asic and advanced life-sustaining interventions are performed as appropriate Question Answer Comments Code status determined by: Unable to determine; FULL CODE until documents or legal decision maker available Care Teams Jointer Submarine Cable Relationship Specialty Start Date End Date Deyvi Vick PA-C [address] [address] [place] [address] PCP - General 01/09/21
--- OUTSIDE RECORDS SUMMARY | 2023-09-13 09:21 | XMS_ITS | Continuity of Care Document ---
Author Name Unknown Organization [facility] Address [address] [address] [place] [address] Phone Care Team Providers Care Wafer Polisher Name Role Phone Link Andre TAPIA Unavailable Unavailable Allergies, Adverse Reactions, Alerts Substance Reaction Status Criticality prednisone Active No Information trimethoprim Hives Active No Information sulfamethoxazole Hives Active No Informat ion Medications Medication Instructions Dosage Effective Dates (start - stop) Status Comments ibuprofen 200 mg Cap take 1 capsule (200 MG) by ORAL route every 6 hours as needed 200 MG - Active Procedures Procedure Date Offic Cons New/estab Mod Routine Serum Collection [id number] Results Test Name Date and Time Measure Units Reference Range Abnormal Flag Status Comments Panel Description: CBC, Platelet; No Differentia l Final WBC 05:57:00 6.0 x10E3/uL 4.0-10.5 Final Performed by:EFRAIN Gooden) RBC 05:57:00 4.35 x10E6/uL 3.80-5.10 Final Performed by:EFRAIN (Dora) Hemoglobin 05:57:00 13.3 g/dL 11.5-15.0 Final Performed by:EFRAIN (Dora) Hematocrit 05:57:00 38.4 % 34.0-44.0 Final Performed by:EFRAIN (Dora) MCV 05:57:00 88 fL 80-98 Final Performed by:EFRAIN Gooden) MCH 05:57:00 30.5 pg 27.0-34.0 Final Performed by:EFRAIN (1) MCHC 05:57:00 34.6 g/dL 32.0-36.0 Final Performed by:EFRAIN Gooden) RDW 05:57:00 12.4 % 11.7-15.0 Final Performed by:EFRAIN Gooden) Platelets 05:57:00 238 x10E3/uL 140-415 Final Performed by:EFRAIN Gooden) Hematology Comments: 05:57:00 Final Performed by:EFRAIN Gooden) NRBC 05:57:00 Final Performed by:EFRAIN Gooden) Advance Directives Directive Yes / No Effective Date File Name Resuscitation Not Answered N/A N/A Life Support Not Answered N/A N/A Intubation Not Answered N/A N/A Antibiotics Not Answered N/A N/A IV Fluid Support Not Answered N/A N/A Tube Feed Not Answered N/A N/A Other Directive N/A N/A WARNING:The information contained in this section is historical and is provided for information only and does not constitute a legal document or any assurance that the information is still accurate. Please verify the information with the abdullahi of the legal document before using it for clinical purposes. Encounters Encounter Description Practice Location Reason(s) For Visit Diagnoses Date Provider Providers Copied on Encounter Offic Cons New/estab Mod [facility] [address] [address], [place], [place], [id number], [place] tel:[phone] [facility] rectal bleeding (chief complaint) Ulcerative Proctitis Link MD Powell. [address] [facility], [facility] [address], [place], [place], [id number], [place]. tel:[phone] Family History Family Member Type Diagnosis Age At Onset First degree family history Problem (finding) No history of Cancer, colon First degree family history Problem (finding) No history of Ulcerative Colitis First degree family history Problem (finding) No history of Crohn's First degree family history Problem (finding) No Family history of No history of Colon Polyps Payers Payer name Insurance type Covered libertarian ID Authorrandolpha mary anne(s) [employer] CI [id number] Social History Type Description Quantity Date Captured Comments Alcohol Use Details No Caffeine Use Details Unknown Tobacco Use Status No Information Smoking Status No Information Sex Female Chief Complaint And Reason For Visit From encounter dated '05/20/2010 10:30'. rectal bleeding (chief complaint) Reason For Referral Reason For Referral No Information History Of Present Illness Encounter Date Complaint History Of Prese nt Illness No Information Functional Status Date Functional Assessmen t No Information Instructions Date Instruction Additional Infor mation No Information Assessments Type Assessment Date No Information Patient Care Teams Name Effective Dates (start - stop) Status Members No Information
--- OUTSIDE RECORDS SUMMARY | 2023-09-13 09:21 | XMS_ITS | Data Portability ---
Author Name Unknown Address [address] [place] [address] Phone [phone] Organization [facility] Address [address] [facility] [address] [facility] [address] [place] [address] Assessment No assessment recorded. Plan of Treatment Reminders Order Date Submit Date Provider Last Modified By Organization Details Last Modified Time Details Appointments None recorded. Lab None recorded. Referral None recorded. Procedures None recorded. Surgeries nephrectomy , hand assisted laparoscopi c (SURG) 2020 021 DONTE Not available 10:27:[address], chest + abdomen + pelvis, w/ contrast - Please call patient to schedule. Thank you. [address] [facility] Radiology Department, [address] [place], [address], 16:28:16 CT, chest + abdomen + pelvis, w/ contrast 2020 021 [facility] Radiology Department, [address] [place], [address], 10:18:05 Medication Orders None recorded. Patient TargetsNo targets recorded. Patient InstructionsNo instructions recorded. Reason for Referral None Reported. Results Created Date Observation Date Name Description Value Unit Range Abnormal Flag LastModifiedBy Organization Detail LastModifiedTime 01/01/20 21 12/26/2020 imagi ng/di agnos tic resul t No observ ation record ed. [email or web address] Not Available 12/31/2020 17:34:05 07/01/20 21 06/30/2021 CT, chest + abdom en + pelvi s, w/ contr ast No observ ation record ed. [email or web address] [facility] Radiology Department [address] [place], [address], 07/01/2021 18:26:21 01/06/20 22 01/05/2022 CT, chest + abdom en + pelvi s, w/ contr ast No observ ation record ed. [email or web address] [facility] Radiology Department [address] [place], [address], 01/11/2022 09:26:01 07/01/20 22 06/28/2022 CT, chest + abdom en + pelvi s, w/ contr ast No observ ation record ed. [email or web address] Radiology Department [address] [place], [address], 07/08/2022 12:48:07 11/10/19 23 11/09/2022 CT, chest + abdom en + pelvi s, w/ contr ast No observ ation record ed. [address] Radiology Department [address] [place], [address], 11/18/2022 14:49:52 05/30/20 23 05/26/2023 CT, chest + abdom en + pelvi s, w/ contr ast No observ ation record ed. [email or web address] [facility] Radiology Department [address] [place], [address], 06/07/2023 17:23:08 Result Notes None recorded. 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 Procedures Surgical History Date Name Laterality Status Provider Name and Address Organization Details Recorded Time 01/17/20 21 NEPHRECTOMY, HAND ASSISTED LAPAROSCOPIC (SURG) completed Estephania de oliveira [facility] 01/20/2021 10:27:56 Caesarean Section completed José Pretty MD [address], [place], [address], [facility] 12/31/2020 17:03:44 Colonoscopy completed José Pretty MD [address], [place], [address], [facility] 12/31/2020 17:03:49 Tubal Ligation completed José Pretty MD [address], [place], [address], [facility] 12/31/2020 17:03:55 Imaging Results Imaging Date Name Status LastModified by Organiz ation Details LastModified Time 12/26/2020 imaging/diagn ostic result completed [email or web address] Information not available 12/31/2020 17:34:05 06/30/2021 CT, chest + abdomen + pelvis, w/ contrast completed [email or web address] [facility] Radiology Department [address] [place], [address], 07/01/2021 18:26:21 01/05/2022 CT, chest + abdomen + pelvis, w/ contrast completed [facility] Radiology Department [address] [place], [address], 01/11/2022 09:26:01 06/28/2022 CT, chest + abdomen + pelvis, w/ contrast completed [address] Radiology Department [address] [place], [address], 07/08/2022 12:48:07 11/09/2022 CT, chest + abdomen + pelvis, w/ contrast completed [address] Radiology Department [address] [place], [address], 11/18/2022 14:49:52 05/26/2023 CT, chest + abdomen + pelvis, w/ contrast completed [email or web address] [facility] Radiology Department [address] [place], [address], 06/07/2023 17:23:08 Procedure Notes None recorded. Medical Equipment None Reported. Allergies Allergen ID Allergen Name Allergen Category Reaction Reaction Severity Criticality Documentation Date Start Date Code Code System Note Provider Name and Address Organization Details Recorded Time 105513 Substance with sulfonami de structure and antibacte rial mechanism of action (substanc e) medicatio n Not available Not available Not available 12/31/2020 [id number] LUCINA Pretty MD [address] [facility], [address], [facility] 17:01:37 Medications Name Sig Start Date Stop Date Status Note LastModified by Organization Details LastModified Time cyclobenzap rine 10 mg tablet TAKE 1 TABLET BY MOUTH 3 TIMES DAILY NEEDED active Not Available Not Available No t Available fluconazole 150 mg tablet take 1 tablet by mouth once active Not Available Not Available No t Available lisinopril 20 mg tablet TAKE ONE TABLET BY MOUTH ONE TIME DAILY active Not Available Not Available No t Available amlodipine 5 mg tablet TAKE ONE TABLET BY MOUTH AT BEDTIME 07/13 completed Not Available Not Available Not Available ciprofloxac in 500 mg tablet TAKE ONE TABLET BY MOUTH TWICE DAILY 07/13 completed Not Available Not Available Not Available tramadol 50 mg tablet TAKE ONE OR TWO TABLETS BY MOUTH EVERY SIX HOURS NEEDED FOR severe PAIN 12/31 completed Not Available Not Available Not Available hydromorpho ne 2 mg tablet TAKE 1 TABLET BY MOUTH EVERY 6 HOURS NEEDED FOR MODERATE TO SEVERE PAIN 07/13 completed Not Available Not Available Not Available amlodipine 10 mg tablet TAKE ONE TABLET BY MOUTH ONE TIME DAILY active Not Available Not Available No t Available methylpredn isolone 4 mg tablets in a dose pack FOLLOW PACKAGE INSTRU[employer]I ONS 12/31 completed Not Available Not Available Not Available ibuprofen PRN active Not Available Not Cydney ilable Not Available Zyrtec active Not Available Not Availa ble Not Available Stimulant Laxative Plus 8.6 mg-50 mg tablet TAKE 1 TO 2 TABLETS BY MOUTH TWICE DAILY NEEDED FOR CONSTIPAT ION active Not Available Not Available No t Available Drysol 20 % topical solution apply topically ONCE NIGHTLY FOR 2-3 NIGHTS, THEN 1-2 TIMES PER WEEK at NIGHT 12/31 completed Not Available Not Available Not Available Vitals Date Recorded Body height Body mass index (BMI) Body weight Respiratory rate Provider Name and Address Organization Details Last Updated DateTime 12/31/2020 160.02 cm 24.8 kg/m2 30843.93 g 16 /min José Pretty MD [address] [place] [address],[address], [address] [place] [address] Urology 12/31/2020 17:01:28 Date Recorded Body height Body mass index (BMI) Body weight Provider Name and Address Organization Details Last Updated DateTime 02/19/2021 160.02 cm 25.3 kg/m2 68501.71 g José Pretty MD [address] [place] [address],[address], [address], [facility] 02/19/2021 11:17:44 Date Recorded Body height Body mass index (BMI) Body weight Provider Name and Address Organization Details Last Updated DateTime 07/13/2021 160.02 cm 25.3 kg/m2 49387.71 g Shelby Amaya [facility], [facility] 07/13/2021 16:22:12 Social History Question Answer Notes LastModified by Organizat ion Details LastModified Time Tobacco Smoking Status Former Smoker José Pretty MD [address] [place] [address],[address], [address], [facility] 12/31/2020 17:04:14 What Was The Date Of Your Most Recent Tobacco Screening? 07/13/2021 [email or web address] Information not available 07/13/2021 Sex: Female Functional Status None recorded. Mental Status None recorded. Family History Relationship Description Onset Age of this Age Resolved Age Notes Father Family history of pr ostate cancer Father Family history of Hypertension Mother Family history of ca rdiac disorder Mother Family history of Hypertension Medical History Condition Response Diabetes N Sexually Transmitted Infection N Other N Bleeding Disorder N High Blood Pressure Y Kidney Stones N High Cholesterol N GERD/Acid Reflux N Heart Disease N Cancer Y Lung Disease N Depression N Gynecological History Statement/Question Response Irregular periods Y Leaking urine with intercourse N Hormone Therapy N Heavy periods Y Pain with intercourse N Sexually Active? Y Obstetrics History GPAL:G 3 P 0 0 0 0 Past Encounters Encounter ID Performer Location Encounter Start Date Encounter Closed Date Diagnosis/Indication [id number] José Pretty MD [facility] [address] [place] [address] 12/31/2020 16:41:03 01/01/2021 09:41:08 Renal mass [id number] MD [facility] [address] [place] [address] 02/19/2021 11:00:06 02/20/2021 14:31:43 Malignant tumor of kidney [id number] José Pretty MD [facility] [address] [place] [address] 07/13/2021 16:18:57 07/15/2021 10:13:01 Malignant tumor of kidney Health Concerns Section Related Observation LastModified by Organization Detai ls LastModified Time None Recorded Concern Status LastModified by Organization Details LastModified Time None Recorded Advance Directives Directive None Recorded Payers Encounter Date Sequence Insurance Name Policy Number Policy Berman Covered Member ID Berman Member ID Guarantor Name 07/13/2021 1 PREFERREDONE Pily Reno [id number] Pily Reno 07/13/2021 2 [id number] - [place] [facility] A Reno [id number] Pily Butterfield 02/19/2021 1 PREFERREDONE Pily Butterfield [id number] Pily Butterfield 02/19/2021 2 [place] ([place] - [place]MO) [facility] Pily A Reno [id number] Pily Reno 12/31/2020 1 PREFERREDONE Pily Butterfield [id number] Pily Reno Notes Date Note Type Note Provider Name and Address Organization Details Recorded Time 12/31/2020 text/html HPI Notes: She w as having left sided flank/ nerve pain that radiated down to her left leg. This has resolved. imaging, however, showed an incidental finding of a right renal mass, 6cm clost to the renal vein. José Pretty MD [address] [place] [address],[address], [address], [facility] 12/31/2020 17:19:56 02/19/2021 text/html HPI Notes: She i s doing well post op. Eating and normal bowel function. José Pretty MD [address] [place] [address],[address] [place], [address], [facility] 02/19/2021 11:35:29 07/13/2021 text/html HPI Notes: She h as recovered well from her nephrectomy for kidney cancer earlier this year. Her f/u CT was clear for any recurrence but there were a couple of smal lung nodules (she did have Covid around the time of CT scan). José Pretty MD [address],[facility] [address], [place], [address], [facility] 07/13/2021 16:46:33 OBGyn Episode No OBEpisode recorded.
--- OUTSIDE RECORDS SUMMARY | 2023-09-13 09:21 | XMS_ITS | Encounter Summary ---
Author Name Unknown Organization [facility] Address [address] [place] [address] Care Team Providers Care Senior Clinician Name Role Phone Deyvi Vick PA-C Primary Care Provider Encounter Details Date Type Department Care Team (Late st Contact Info) Description 01/14/2021 External Order Results [facility] [address] [place] [address] Outside, Provider Social History Tobacco Use Types Packs/Day Years Used Date Smoking Tobacco: Never Assessed Sex and Gender Information Value Date Recorded [...] on file documented as of this encounter Procedures Procedure Name Priority Date/Time Associated Diagnosis Comments COVID-19 VIRUS (CORONAVIRUS) BY PCR (EXTERNAL RESULT) Routine 01/14/2021 11:38 AM CDT documented in this encounter Results * COVID-19 Virus (Coronavirus) by PCR (External Result) (01/14/2021 11:38 AM CDT) COVID-19 Virus by PCR (External Result) Negative Negative [facility] 01/14/2021 11:3 8 AM CDT Narrative YIMI PFT - 01/15/2021 10:15 AM CDT Verified by Tadeo Lombardi on 01/15/2021. Patient Reported LABORATORY YIMI PFT [facility] [address] [id number], [facility] [phone] documented in this encounter Visit Diagnoses Not on filedocumented in this encounter Care Teams Senior Clinician Relationship Specialty Start Date End Date Deyvi Vick PA-C [address] [place] [address] [place] [address] PCP - General 01/09/21 documented as of this encounter
== END 2023-09-13 09:03 | disposition home or self-care (01) ==
LOC: MRI 09:02
PROVIDERS: PCP Physician Assistant Medical; Visit Provider Physician Assistant Medical
DX: M54.50 Low back pain, unspecified (principal); M51.36 Other intervertebral disc degeneration, lumbar region; G89.29 Other chronic pain
CPT/HCPCS: 72148

== ENCOUNTER 2024-02-03 08:02 | Outpatient (CLI) | payer OTHER, SELFPAY | END 2024-02-03 08:03 | disposition home or self-care (01) | LOC: NFLDREF 17:39 | PROVIDERS: PCP Physician Assistant Medical; Referring Provider Physician Assistant Medical; Visit Provider Physician Assistant Medical | DX: R53.83 Other fatigue (principal); I10 Essential (primary) hypertension; F32.9 Major depressive disorder, single episode, unspecified | CPT/HCPCS: 80053; 80061; 82306; 82607; 82728; 84443 ==

== ENCOUNTER 2024-10-15 15:29 | Outpatient (CLI) | payer OTHER, SELFPAY ==
--- NOTE | 2024-10-15 16:00 | CRLHL7_ITS ---
For Patients: As a result of the Century Cures Act, medical imaging exams and procedure reports are released immediately into your electronic medical record. You may view this report before your referring provider. If you have questions, please contact your health care provider. INDICATION: Follow-up malignant neoplasm of kidney. TECHNIQUE: CT chest, abdomen and pelvis acquired with 74 mL Isovue 370 IV contrast. COMPARISON: CT May 26, 2023 FINDINGS: Chest: Cardiovascular structures: Heart size is normal. Thoracic aorta and main pulmonary artery are normal in caliber. Mediastinum and khanh: No mass or adenopathy. Lungs: Clear. Pleura and pericardium: No effusions. Chest wall and axilla: No mass or adenopathy. Bones: Unremarkable for age. Abdomen and Pelvis: Liver: Unremarkable. Spleen: Unremarkable. Pancreas: Unremarkable. Gallbladder and bile ducts: Slightly contracted gallbladder. Mild chronic dilatation common bile duct and proximal intrahepatic ducts. Query biliary dyskinesia. Kidneys: Right kidney absent. Left kidney normal. Adrenal glands: Unremarkable. GI tract: Unremarkable. Appendix is normal. Vascular structures: Unremarkable. Lymph nodes: Unremarkable. Miscellaneous: Unremarkable. No free air or significant free fluid. Pelvic Organs: Unremarkable. Bones: Chronic sclerotic bone island right ilium. IMPRESSION: Right nephrectomy. No local or metastatic disease. Somewhat prominent common bile duct and proximal intrahepatic ducts. Query biliary dyskinesia. No obstructing mass or choledocholithiasis appreciated. Correlate with symptoms and laboratory findings. Direct visualization if clinically indicated. Please note that all CT scans at this facility use dose modulation, iterative reconstruction, and/or weight-based dosing when appropriate to reduce radiation dose to as low as reasonably achievable. Dictated by Leroy Do MD @ 10/17/2024 11:12:21 AM (Electronically Signed)
[2024-10-15 16:18] LABS: Estimated Glomerular Filt Rate 68 ml/min
== END 2024-10-15 15:30 | disposition home or self-care (01) ==
LOC: CT 15:30
PROVIDERS: PCP Physician Assistant Medical; Visit Provider Urology
DX: C64.9 Malignant neoplasm of unspecified kidney, except renal pelvis (principal)
CPT/HCPCS: 36415; 71260; 74177; 82565; Q9967

== ENCOUNTER 2025-04-24 08:15 | Outpatient (CLI) | payer OTHER, SELFPAY | END 2025-04-24 08:16 | disposition home or self-care (01) | LOC: NFLDREF 04-26 13:57 | PROVIDERS: PCP Physician Assistant Medical; Referring Provider Physician Assistant Medical; Visit Provider Physician Assistant Medical | DX: Z00.00 Encounter for general adult medical examination without abnormal findings (principal); I10 Essential (primary) hypertension | CPT/HCPCS: 80053; 80061; 84443 ==